=== PATIENT | male | born 1940 | race Caucasian/White ===

== ENCOUNTER 2016-06-14 14:35 | Emergency (ER) | payer OTHER ==
[~2016-06-14] VITALS: Ht 182.9 cm; Wt 97.7 kg
[~2016-06-14 14:35] MED LIST: ACET1TAB84 PO; ASPI81TA28 PO; CMD/25 PO; FINA5TAB PO; FLM4 PO; FRRG PO; LPT/40 PO; METF-384 PO; METO50TA16 PO; SOTA80TA20 PO; TRAM-10 PO; WARF5TAB90 PO
[2016-06-14 14:50] VITALS: TEMP 36.8; Ht 182.9 cm; Wt 97.7 kg
[2016-06-14] MEDS ORDERED: OXYMETAZOLINE HCL 0.05% NA SPR 15 ML BTL ONE ×2 (15:00→15:06)
[2016-06-14] MEDS ORDERED: METF500T5 PO (15:38)
[2016-06-14 15:54] LABS: BUN/CREATININE RATIO 17.6 (10-20); CALCIUM 8.4 mg/dl (8.5-10.1); CREATININE 0.77 mg/dl (0.60-1.40); POTASSIUM 4.1 mmol/L (3.5-5.1)
[2016-06-14 15:55] LABS: INR 2.9 (0.9-1.1); PROTHROMBIN TIME (PATIENT) 32.9 SECONDS (9.0-12.0)
[2016-06-14 15:56] LABS: BASO % 0.3 %; BASO ABS # 0.02 K/uL (0-0.2); COMPLETE YES; EOS % 4.3 %; IG% 0.2 %; LYMPH % 17.8 %; LYMPH ABS # 1.07 K/uL (1.2-3.4); MEAN CELL VOLUME 91.3 fL (80-100); MEAN CORPUSCULAR HEMOGLOBIN 30.7 pg (25-34); MEAN CORPUSCULAR HGB CONC 33.6 g/dl (32-36); MEAN PLATELET VOLUME 10.1 fL (7.4-10.4); NEUT % 67.4 %; PLATELET COUNT 272 K/uL (130-400); RED BLOOD COUNT 4.27 M/uL (4.7-6.1)
[2016-06-14 16:52] VITALS: BP 177/104; PULSE 64; O2SAT 97
--- NOTE | 2016-06-14 18:08 | EMERGENCY ROOM VISIT NOTE ---
History Report prepared by Pawan: Ursula Willson Under the Supervision of: Dr. Marcelino Odell M.D. First contact with patient: 14:50 Chief Complaint: NOSE BLEED (MINOR) Stated Complaint: NOSEBLEED History of Present Illness The patient is a 76 year old male who presents to the Emergency Room with complaints of a recurrent right sided nosebleed that began this morning around 0900. He notes that he was able to control the bleed for about 3 hours; however , it started again when he got out of his recliner to use the bathroom. Currently, it is still bleeding but he reports that it has slowed down. He also complains of a mild headache that began about 30 minutes ago. The patient denies any rectal bleeding. He is on Coumadin for a history of a-fib. He states that he is not always in atrial fibrillation. Source of History: patient Onset: 0900 Position: nose (right nostril) Timing: other (recurrent) Associated Symptoms: + headache Review of Systems See HPI for pertinent positives & negatives. A total of 10 systems reviewed and were otherwise negative. Past Medical & Surgical Medical Problems: (1) Atrial fibrillation and flutter (2) Diabetes mellitus (3) Hyperlipidemia (4) Left Hip DJD (5) Supraventricular tachycardia Family History Diabetes mellitus Heart disease Social History Smoking Status: Former Smoker Drug Use: none Marital Status: Housing Status: lives with family Current/Historical Medications Scheduled Aspirin (Aspirin Ec), 81 MG PO HS Atorvastatin (Lipitor), 40 MG PO HS Finasteride (Proscar), 5 MG PO HS Metformin Hcl Er (Glucophage Er), 500 MG PO QPM Metoprolol Tartrate (Lopressor) (Lopressor), 50 MG PO BID Sotalol Hcl (Betapace), 80 MG PO BID Tamsulosin HCl (Tamsulosin HCl), 0.4 MG PO HS Warfarin Sod (Coumadin), 2.5 MG PO MON&FRI Warfarin Sodium (Coumadin), 5 MG PO T,W,R,SA,SUN Scheduled PRN Acetaminophen (Tylenol Arthritis Ext Rel), 2 TAB PO Q8H PRN for Pain Allergies Coded Allergies: No Known Allergies (Verified , 06/14/16) Physical Exam Vital Signs Date Time Temp Pulse Resp B/P Pulse Ox O2 Delivery O2 Flow Rate FiO2 06/14/16 16:52 64 19 177/104 97 Room Air 06/14/16 14:50 36.8 64 18 171/89 96 Room Air Physical Exam Constitutional: Vital signs reviewed. Eyes: Pupils are equal round reactive to light. Conjunctiva are noninjected. ENT: Pharynx is clear without erythema or exudate. Mucous membranes are moist. Neck supple without meningeal signs. Bleeding from the right naris. Respiratory: Clear to auscultation bilaterally. Breath sounds are equal bilaterally. Cardiovascular: Regular rate and rhythm. No rubs or gallops. GI: Soft, nondistended and nontender. Bowel sounds are present. Musculoskeletal: No peripheral edema. No lower extremity tenderness. Integumentary: No cyanosis. Neurological: The patient is awake and alert. No focal deficits. Psychiatric: Normal affect. Medical Decision & Procedures Laboratory Results 06/14/16 15:25 Red Blood Count 4.27, Mean Corpuscular Volume 91.3, Mean Corpuscular Hemoglobin 30.7, Mean Corpuscular Hemoglobin Concent 33.6, Mean Platelet Volume 10.1, Neutrophils (%) (Auto) 67.4, Lymphocytes (%) (Auto) 17.8, Monocytes (%) (Auto) 10.0, Eosinophils (%) (Auto) 4.3, Basophils (%) (Auto) 0.3, Neutrophils # (Auto ) 4.04, Lymphocytes # (Auto) 1.07, Monocytes # (Auto) 0.60, Eosinophils # (Auto ) 0.26, Basophils # (Auto) 0.02 06/14/16 15:25 Test 06/14/16 15:25 White Blood Count 6.00 K/uL (4.8-10.8) Red Blood Count 4.27 M/uL (4.7-6.1) Hemoglobin 13.1 g/dL (14.0-18.0) Hematocrit 39.0 % (42-52) Mean Corpuscular Volume 91.3 fL (80-100) Mean Corpuscular Hemoglobin 30.7 pg (25-34) Mean Corpuscular Hemoglobin Concent 33.6 g/dl (32-36) Platelet Count 272 K/uL (130-400) Mean Platelet Volume 10.1 fL (7.4-10.4) Neutrophils (%) (Auto) 67.4 % Lymphocytes (%) (Auto) 17.8 % Monocytes (%) (Auto) 10.0 % Eosinophils (%) (Auto) 4.3 % Basophils (%) (Auto) 0.3 % Neutrophils # (Auto) 4.04 K/uL (1.4-6.5) Lymphocytes # (Auto) 1.07 K/uL (1.2-3.4) Monocytes # (Auto) 0.60 K/uL (0.11-0.59) Eosinophils # (Auto) 0.26 K/uL (0-0.5) Basophils # (Auto) 0.02 K/uL (0-0.2) RDW Standard Deviation 45.9 fL (36.4-46.3) RDW Coefficient of Variation 13.8 % (11.5-14.5) Immature Granulocyte % (Auto) 0.2 % Immature Granulocyte # (Auto) 0.01 K/uL (0.00-0.02) Prothrombin Time 32.9 SECONDS (9.0-12.0) Prothromb Time International Ratio 2.9 (0.9-1.1) Anion Gap 5.0 mmol/L (3-11) Est Creatinine Clear Calc Drug Dose 95.8 ml/min Estimated GFR () 100.7 Estimated GFR (Non- 86.9 BUN/Creatinine Ratio 17.6 (10-20) Calcium Level 8.4 mg/dl (8.5-10.1) Laboratory results as reviewed by me. Medications Administered Medications (Trade) Dose Ordered Sig/Herminio Route Start Time Stop Time Status Last Admin Dose Admin Oxymetazoline HCl (Afrin 0.05% Nasal [place]) 1 sprays NOW ONCE NA 06/14/16 15:00 06/14/16 15:02 DC 06/14/16 15:00 1 SPRAYS Procedure Anterior Nasal Packing Indication: Right nasal bleeding on Coumadin Verbal consent obtained. Risks and benefits were explained with the usual customary discussion. A time out was taken. Clots were removed with suction. The right naris was prepped with Afrin. A 5.5-cm nasal balloon was placed in a standard fashion. The patient tolerated this well. Hemostasis was achieved. No complications. ED Course 1456: The patient was evaluated in room C3. A complete history and physical exam was performed. 1500: Ordered Oxymetazoline HCl 1 sprays NA. 1501: I performed an anterior nasal packing procedure - see procedure note above for details. 1543: I reassessed the patient. He was not having any bleeding at this time. 1629: I reassessed the patient. He had no discomfort to his nose and was not bleeding. I deflated the balloon slightly and will check on him in 10 minutes to see if he begins to bleed. I told him to return Saturday evening to have it removed. He agreed with the plan. 1632: The patient's bleeding began again. I reinflated the packing. He is not having any significant pain. The bleeding stopped. 1700: I reassessed the patient. He was not bleeding. He was comfortable and wants to go home. Medical Decision This is a 76-year-old male who presents with a nosebleed. I did perform a limited focused review of portions of the patient's old chart on the electronic medical record. The patient has had no recent pertinent visits to this hospital. I did evaluate the patient as noted above. IV access was established. I did order and review the patient's blood work as noted in the electronic medical record. His INR is therapeutic at 2.9. I did spray the patient's nostril with Afrin after he blew his nose. I did pack his nose with a 5.5 rapid Rhino. I did achieve hemostasis. He was observed here and had no recurrent bleeding. I did attempt to readjust the pressure in the rapid Rhino and unfortunately started bleeding again. I therefore reinflated it and hemostasis was achieved. He was taken home by his but while in the car he developed some bleeding. He returned to the room and I readjusted the rapid Rhino by deflating it and then pushing even further. I did observe him for some time here and he had no recurrent bleeding. He was therefore discharged home and will return in 3 days for removal of the packing. Impression Primary Impression: Epistaxis Additional Impression: Anticoagulated on Coumadin Scribe Attestation The scribe's documentation has been prepared under my direct and personally reviewed by me in its entirety. I confirm that the note above accurately reflects all work, treatment, procedures, and medical decision making performed by me. Departure Information Dispostion Home / Self-Care Referrals Hamzah Gonzales M.D. Forms HOME CARE DOCUMENTATION FORM, IMPORTANT VISIT INFORMATION, WORK / SCHOOL INSTRUCTIONS Patient Instructions ED Nasal Packing Anterior Removable, My [facility] Additional Instructions You have been examined and treated today on an emergency basis only. This is not a substitute for, or an effort to provide, complete comprehensive medical care. It is impossible to recognize and treat all injuries or illnesses in a single emergency department visit. It is therefore important that you follow up closely with your physician. Call as soon as possible for an appointment. Return for worsening symptoms or if you develop fever, vomiting, nasal pain or any other concerning symptoms. Your packing needs to be removed in 2-3 days. Return here Saturday night or Saturday at the latest for removal your packing or go to an urgent care center or your doctor if you prefer. Problem Qualifiers
== END 2016-06-14 17:25 | disposition home or self-care (01) ==
LOC: EDBD 14:35 → C.EDC 14:40
DX: R04.0 Epistaxis (principal); Z79.01 Long term (current) use of anticoagulants; I48.91 Unspecified atrial fibrillation; E11.9 Type 2 diabetes mellitus without complications; E78.5 Hyperlipidemia, unspecified; M16.12 Unilateral primary osteoarthritis, left hip; I47.1 Supraventricular tachycardia; Z79.82 Long term (current) use of aspirin; Z87.891 Personal history of nicotine dependence; Z83.3 Family history of diabetes mellitus

== ENCOUNTER 2016-06-17 10:31 | Emergency (ER) | payer OTHER ==
[~2016-06-17] VITALS: Ht 182.9 cm; Wt 101.8 kg
[~2016-06-17 10:31] MED LIST changes: -FRRG PO; -METF-384 PO; +METF500T5 PO; -TRAM-10 PO
[2016-06-17 10:39] VITALS: Ht 182.9 cm; Wt 101.8 kg
[2016-06-17] MEDS ORDERED: XYLOCAINE 1%/SOD BICARB 20 ML VIAL INFIL ONE (11:15)
[2016-06-17 12:08] VITALS: BP 109/68; PULSE 64; TEMP 36.6; O2SAT 95
--- NOTE | 2016-06-17 17:47 | EMERGENCY ROOM VISIT NOTE ---
ED Visit Note First contact with patient: 10:46 CHIEF COMPLAINT: Nasal packing removal. HISTORY OF PRESENT ILLNESS: Mr. Rodriguez is a 76-year-old white male who ambulates into the ED accompanied by his requesting nasal packing removal. Patient reports 3 days ago he started to have a nosebleed that he could not control at home. He came in the emergency department and a Rhino Rocket was placed in the left nostril. Since that time he reports she's had some mild blood-tinged fluid around the packing but has had no active bleeding. Additionally he reports he has been feeling fine and has had some mild pressure in his sinuses but no specific pain and he denies any fevers or chills. PHYSICAL EXAM: Vital Signs: Date Time Temp Pulse Resp B/P Pulse Ox O2 Delivery O2 Flow Rate FiO2 06/17/16 12:08 36.6 64 18 109/68 95 06/17/16 10:39 36.6 64 18 109/68 95 Room Air General: 76 year-old white male in no acute distress, nontoxic-appearing, afebrile and hemodynamically stable. Neurological: Awake, alert and oriented 3. Answering questions appropriately and following commands. No focal motor sensory deficits. Face: No gross bony deformities. Nasal packing noted in the left nostril. No active bleeding prior to removal. After removal he continued to have no active bleeding. I did encourage him to blow his nose at least 4 times vigorously and had no return of bleeding. A visual inspection showed some bloody mucus in the nose but no active bleeding. No perforations or abscess were noted over the septum. Palpation of the nose revealed no swelling or tenderness. ED COURSE: Patient is assessed as noted above. The packing was easily removed on the first attempt. Patient was educated about tonight's findings and instructed on his treatment plan; he verbalizes understanding and agreement with this plan. DISPOSITION: Patient discharged home in stable condition accompanied by his . CLINICAL IMPRESSION: Nasal packing removal. PLAN: Patient was encouraged to continue his current medications. Patient was instructed how to attempt to stop an episode of epistaxis at home with a nasal clamp and/or Afrin spray. Patient was encouraged to use [id number] nasal saline spray to keep his mucous membranes moist and possible use a humidifier in his home. Patient was encouraged to follow-up with his PCP for recheck and possible referral to ENT specialist. Patient was encouraged return the ED for uncontrolled recurrent bleeding, fevers , uncontrolled pain or any new/concerning symptoms.
== END 2016-06-17 11:30 | disposition home or self-care (01) ==
LOC: C.EDB 10:33 → C.EDD 11:30
DX: Z48.00 Encounter for change or removal of nonsurgical wound dressing (principal); R04.0 Epistaxis

== ENCOUNTER 2017-01-25 11:30 | Emergency (ER) | payer OTHER ==
[~2017-01-25] VITALS: Ht 180.3 cm; Wt 102.9 kg
[2017-01-25 12:58] VITALS: Ht 180.3 cm; Wt 102.9 kg
--- NOTE | 2017-01-25 13:39 | DIAGNOSTIC IMAGING REPORT ---
CHEST ONE VIEW PORTABLE CLINICAL HISTORY: EVALUATE RESPIRATORY DISTRESS.DYSPNEA dyspnea COMPARISON STUDY: 01/12/2016 FINDINGS: Atelectasis versus minimal infiltrate left base. Diaphragms are smooth. Lungs otherwise are clear. Mild stable cardiomegaly. IMPRESSION: Minimal infiltrate versus atelectasis left base. Mild stable cardiomegaly. The above report was generated using voice recognition software. It may contain grammatical, syntax or spelling errors. Electronically signed by: Bradford Garcia M.D. 01/25/2017 1:38 PM Dictated Date/Time: 01/25/2017 1:37 PM
[2017-01-25 14:49] LABS: BASO % 0.4 %; BASO ABS # 0.03 K/uL (0-0.2); COMPLETE YES; EOS % 4.3 %; HEMATOCRIT 43.3 % (42-52); IG% 0.4 %; LYMPH % 21.4 %; LYMPH ABS # 1.59 K/uL (1.2-3.4); MEAN CELL VOLUME 96.7 fL (80-100); MEAN CORPUSCULAR HEMOGLOBIN 32.4 pg (25-34); MEAN CORPUSCULAR HGB CONC 33.5 g/dl (32-36); MEAN PLATELET VOLUME 10.5 fL (7.4-10.4); MONO % 8.7 %; NEUT % 64.8 %; PLATELET COUNT 329 K/uL (130-400); RED BLOOD COUNT 4.48 M/uL (4.7-6.1); WHITE BLOOD COUNT 7.44 K/uL (4.8-10.8)
[2017-01-25 14:56] LABS: INR 2.9 (0.9-1.1); PARTIAL THROMBOPLASTIN RATIO 1.4; PROTHROMBIN TIME (PATIENT) 32.7 SECONDS (9.0-12.0)
[2017-01-25 14:57] LABS: ALT/SGPT 26 U/L (12-78); BLOOD UREA NITROGEN 15 mg/dl (7-18); BUN/CREATININE RATIO 14.4 (10-20); CALCIUM 8.9 mg/dl (8.5-10.1); CARBON DIOXIDE 26 mmol/L (21-32); CHLORIDE 103 mmol/L (98-107); CREATININE 1.03 mg/dl (0.60-1.40); GLUCOSE 228 mg/dl (70-99); MAGNESIUM 2.1 mg/dl (1.8-2.4); POTASSIUM 3.7 mmol/L (3.5-5.1); SODIUM 137 mmol/L (136-145)
[2017-01-25 15:08] LABS: ALKALINE PHOSPHATASE 44 U/L (45-117); AST/SGOT 20 U/L (15-37); PHOSPHORUS 2.8 mg/dl (2.5-4.9)
[2017-01-25 15:21] LABS: MANUAL MICROSCOPIC REQUIRED? YES; REVIEW REQ? NO; URINE APPEARANCE CLEAR (CLEAR); URINE BILIRUBIN NEG (NEG); URINE COLOR YELLOW; URINE NITRITE NEG (NEG); URINE PH 5.5 (4.5-7.5); URINE SPECIFIC GRAVITY 1.025 (1.000-1.030); UROBILINOGEN NEG (NEG)
[2017-01-25 15:52] LABS: URINE BACTERIA 1+ (NEG); URINE MUCUS PRESENT (NONE PRSENT); URINE RBC 0-4 /hpf (0-4)
--- NOTE | 2017-01-25 16:00 | EMERGENCY ROOM VISIT NOTE ---
History Report prepared by Pawan: Renny De La Rosa Under the Supervision of: Dr. Pelon Ramos M.D. First contact with patient: 12:29 Chief Complaint: TACHYCARDIA Stated Complaint: HEART RYTHM,PULSE RATE History of Present Illness The patient is a 76 year old white male with a past medical history of a-fib, DM , enlarged prostate, hyperlipidemia who presents to the ED with a cc of intermittent heart palpitations beginning three days ago. Feels that his heart rate was increased, and rhythm was irregular. Symptoms resolved two days ago, and returned yesterday. History of similar symptoms, but has not happened in over a year. Nothing worsens his symptoms. Negative lightheadedness. On Sotalol and Metoprolol, and took extra dose of each which resolved his symptoms. Patient on Coumadin, last INR was 2.5. Denies recent changes to his medications. Had an unsuccessful cardiac ablation recently. Had left hip replacement one year ago, notes that he has been taking a lot of Tylenol chronically. Drinks alcohol rarely. Occasional caffeine use. No increased stresses. Source of History: patient Onset: Three days ago Quality: other (heart palpitations) Timing: intermittent Modifying Factors (Worsening): other (none) Note: The patient denies lightheadedness. Review of Systems See HPI for pertinent positives and negatives. A total of ten systems were reviewed and were otherwise negative. Past Medical & Surgical Medical Problems: (1) Atrial fibrillation and flutter (2) Diabetes mellitus (3) Enlarged prostate (4) Hyperlipidemia (5) Left Hip DJD (6) Supraventricular tachycardia Family History Diabetes mellitus Heart disease Social History Smoking Status: Former Smoker Drug Use: none Marital Status: Housing Status: lives with family Current/Historical Medications Scheduled Aspirin (Aspirin Ec), 81 MG PO HS Atorvastatin (Lipitor), 40 MG PO HS Finasteride (Proscar), 5 MG PO HS Metformin Hcl Er (Glucophage Er), 500 MG PO QPM Metoprolol Tartrate (Lopressor) (Lopressor), 50 MG PO BID Sotalol Hcl (Betapace), 80 MG PO BID Tamsulosin HCl (Tamsulosin HCl), 0.4 MG PO HS Warfarin Sod (Coumadin), 2.5 MG PO 2XWK Warfarin Sodium (Coumadin), 5 MG PO 5XWK Scheduled PRN Acetaminophen (Tylenol Arthritis Ext Rel), 2 TAB PO Q8H PRN for Pain Allergies Coded Allergies: No Known Allergies (Verified , 01/25/17) Physical Exam Vital Signs Date Time Temp Pulse Resp B/P (MAP) Pulse Ox O2 Delivery O2 Flow Rate FiO2 01/25/17 16:26 62 20 142/68 94 01/25/17 14:25 55 21 01/25/17 14:20 62 20 01/25/17 14:15 56 20 01/25/17 14:10 57 20 01/25/17 14:05 59 20 01/25/17 14:00 57 21 01/25/17 13:55 58 15 01/25/17 13:50 58 19 01/25/17 13:45 60 20 01/25/17 13:40 58 20 01/25/17 13:35 58 17 01/25/17 13:30 57 22 01/25/17 13:25 61 21 01/25/17 13:20 59 18 01/25/17 13:15 56 14 01/25/17 13:10 68 17 01/25/17 13:05 61 23 01/25/17 13:00 60 24 01/25/17 12:55 61 21 95 01/25/17 12:50 60 20 94 01/25/17 12:45 60 21 95 01/25/17 12:40 61 17 96 01/25/17 12:38 61 16 140/73 96 Room Air 01/25/17 12:38 140/73 01/25/17 12:37 Room Air 01/25/17 12:35 61 26 95 01/25/17 12:30 61 21 95 01/25/17 12:25 61 18 94 01/25/17 12:20 61 17 96 01/25/17 12:15 60 24 95 01/25/17 12:10 62 16 95 01/25/17 12:02 61 01/25/17 11:36 66 18 127/75 95 Room Air Physical Exam GENERAL: Awake, alert, well-appearing, NAD HENT: Normocephalic, atraumatic. EYES: Normal conjunctiva. Sclera non-icteric. NECK: Supple. No nuchal rigidity. FROM. RESPIRATORY: CTAB, no rhonchi, wheezing, crackles CARDIAC: RRR, no MRG ABDOMEN: Soft, NTND, BS+ MSK: No chest wall TTP, no LE edema NEURO: GCS 15, CN 2-12 intact, moves all 4s on command SKIN: No rash or jaundice noted. Medical Decision & Procedures ER Provider Diagnostic Interpretation: X-ray: Per my interpretation, radiologist review. CHEST ONE VIEW PORTABLE FINDINGS: Atelectasis versus minimal infiltrate left base. Diaphragms are smooth. Lungs otherwise are clear. Mild stable cardiomegaly. IMPRESSION: Minimal infiltrate versus atelectasis left base. Mild stable cardiomegaly. The above report was generated using voice recognition software. It may contain grammatical, syntax or spelling errors. Electronically signed by: Bradford Garcia M.D. 01/25/2017 1:38 PM Laboratory Results 01/25/17 11:50 Red Blood Count 4.48, Mean Corpuscular Volume 96.7, Mean Corpuscular Hemoglobin 32.4, Mean Corpuscular Hemoglobin Concent 33.5, Mean Platelet Volume 10.5, Neutrophils (%) (Auto) 64.8, Lymphocytes (%) (Auto) 21.4, Monocytes (%) (Auto) 8.7, Eosinophils (%) (Auto) 4.3, Basophils (%) (Auto) 0.4, Neutrophils # (Auto) 4.82, Lymphocytes # (Auto) 1.59, Monocytes # (Auto) 0.65, Eosinophils # (Auto) 0.32, Basophils # (Auto) 0.03 01/25/17 11:50 Test 01/25/17 11:50 01/25/17 14:34 White Blood Count 7.44 K/uL (4.8-10.8) Red Blood Count 4.48 M/uL (4.7-6.1) Hemoglobin 14.5 g/dL (14.0-18.0) Hematocrit 43.3 % (42-52) Mean Corpuscular Volume 96.7 fL (80-100) Mean Corpuscular Hemoglobin 32.4 pg (25-34) Mean Corpuscular Hemoglobin Concent 33.5 g/dl (32-36) Platelet Count 329 K/uL (130-400) Mean Platelet Volume 10.5 fL (7.4-10.4) Neutrophils (%) (Auto) 64.8 % Lymphocytes (%) (Auto) 21.4 % Monocytes (%) (Auto) 8.7 % Eosinophils (%) (Auto) 4.3 % Basophils (%) (Auto) 0.4 % Neutrophils # (Auto) 4.82 K/uL (1.4-6.5) Lymphocytes # (Auto) 1.59 K/uL (1.2-3.4) Monocytes # (Auto) 0.65 K/uL (0.11-0.59) Eosinophils # (Auto) 0.32 K/uL (0-0.5) Basophils # (Auto) 0.03 K/uL (0-0.2) RDW Standard Deviation 46.2 fL (36.4-46.3) RDW Coefficient of Variation 13.2 % (11.5-14.5) Immature Granulocyte % (Auto) 0.4 % Immature Granulocyte # (Auto) 0.03 K/uL (0.00-0.02) Prothrombin Time 32.7 SECONDS (9.0-12.0) Prothromb Time International Ratio 2.9 (0.9-1.1) Activated Partial Thromboplast Time 36.8 SECONDS (21.0-31.0) Partial Thromboplastin Ratio 1.4 Anion Gap 8.0 mmol/L (3-11) Est Creatinine Clear Calc Drug Dose 72.2 ml/min Estimated GFR () 80.3 Estimated GFR (Non- 69.3 BUN/Creatinine Ratio 14.4 (10-20) Calcium Level 8.9 mg/dl (8.5-10.1) Phosphorus Level 2.8 mg/dl (2.5-4.9) Magnesium Level 2.1 mg/dl (1.8-2.4) Total Bilirubin 0.7 mg/dl (0.2-1) Aspartate Amino Transf (AST/SGOT) 20 U/L (15-37) Alanine Aminotransferase (ALT/SGPT) 26 U/L (12-78) Alkaline Phosphatase 44 U/L (45-117) Troponin I < 0.015 ng/ml (0-0.045) Pro-B-Type Natriuretic Peptide 1535 pg/ml (0-1800) Total Protein 8.2 gm/dl (6.4-8.2) Albumin 4.0 gm/dl (3.4-5.0) Globulin 4.2 gm/dl (2.5-4.0) Albumin/Globulin Ratio 1.0 (0.9-2) Thyroid Stimulating Hormone (TSH) 2.440 uIu/ml (0.300-4.500) Urine Color YELLOW Urine Appearance CLEAR (CLEAR) Urine pH 5.5 (4.5-7.5) Urine Specific [place] 1.025 (1.000-1.030) Urine Protein NEG (NEG) Urine Glucose (UA) 1+ (NEG) Urine Ketones NEG (NEG) Urine Occult Blood TRACE (NEG) Urine Nitrite NEG (NEG) Urine Bilirubin NEG (NEG) Urine Urobilinogen NEG (NEG) Urine Leukocyte Esterase NEG (NEG) Urine RBC 0-4 /hpf (0-4) Urine WBC 5-10 /hpf (0-5) Urine Epithelial Cells >30 /lpf (0-5) Urine Bacteria 1+ (NEG) Urine Mucus PRESENT (NONE PRSENT) Laboratory results reviewed by me ECG Indication: palpitations Rate (beats per minute): 61 Rhythm: normal sinus Findings: Q waves (leads 3 and AVF), other (Normal intervals. Normal axis. No other STS changes or TWI. ) Comparison ECG Date: June 05, 2012 Change: no significant change ED Course 1231: The patient was evaluated in room B4B. A complete history and physical exam was performed. 1555: I reevaluated the patient. Discussed results and discharge instructions: he verbalized understanding and agreement. The patient is ready for discharge. Medical Decision The patient is a 76 year old white male with a past medical history of SVT, DM, hyperlipidemia who presents to the ED with a cc of intermittent heart palpitations beginning three days ago. Differential diagnosis include etiologies such as premature contractions, electrolyte abnormality, cardiac dysrhythmia, thyroid dysfunction, pulmonary embolism, infection, gastrointestinal, as well as others were entertained. Patient was seen and evaluated the bedside. Patient is a prior history of a rapid heart rate and has been placed on both metoprolol and sotalol for rate control. Patient also has a history of failed ablation. Patient states that over the last several days he's had several episodes of intermittent tachycardia at which point he is take an extra dose of his medications. Patient states that his tachycardia is resolved. Patient denies any alcohol, or tobacco is recent. Patient denies any stimulants or supplements. Patient's exam is fairly unremarkable. Patient does not have an elevated heart rate at this time. Patient has no history of syncope or presyncope. Patient is no lower shotty swelling or edema. Patient is no other recent changes in medications with the exception of his on trial at home. Patient's EKG is unchanged. Patient's chest x-ray shows questionable atelectasis versus infection. Patient denies any infectious symptoms and does not have an elevated white count this is more likely atelectasis. Patient has fairly unremarkable blood work. I did discuss the patient with the on-call relay record clerk who recommended outpatient follow-up as the patient would likely need an EP study which would not be able to be done in house at this time given the holiday weekend. I did discuss this with the patient was agreeable to this plan of care. Patient was told that he may check his pulse and temperature 60 take an extra dose of Toprol but given the concern of side effects with the sotalol he should not take extra dose of that. Patient was also told that if he has worsening symptoms he may return for further examination and treatment. Patient is suitable for outpatient follow-up and treatment. All cautions were answered. Patient was given strict follow-up, discharge, and return precautions. All questions were answered. Patient was deemed suitable for outpatient follow-up at this time. Patient agreed with the plan of care and was safely discharged home. Medication Reconcilliation Current Medication List: was personally reviewed by me Blood Pressure Screening Patient's blood pressure: Normal blood pressure Blood pressure disposition: Did not require urgent referral Consults Time Called: 1530 Consulting Physician: Dr. Lopez -Cardiology Returned Call: [phone] Discussed the patient's case. Dr. Lopez feels that the patient would likely be safe for discharge with outpatient follow-up unless he has changes to his Sotalol levels. Impression Primary Impression: Tachycardia Scribe Attestation The scribe's documentation has been prepared under my direction and personally reviewed by me in its entirety. I confirm that the note above accurately reflects all work, treatment, procedures, and medical decision making performed by me. Departure Information Dispostion Home / Self-Care Referrals Hamzah Gonzales M.D. (PCP) Dandy Lopez, Bradford Christianson PA-C Patient Instructions My [facility], Tachycardia Additional Instructions Please return to the emergency department if you have worsening or recurrent symptoms not amenable to at-home treatment. Please call for a follow-up appointment with her primary care physician. Please take your medications as prescribed. If you have other concerns and/or complaints please feel free to also call your primary care physician's office or return the ED for further evaluation, management, and treatment. Take your medications as prescribed. You have been examined and treated today on an emergency basis only. This is not a substitute for, or an effort to provide, complete comprehensive medical care. It is impossible to recognize and treat all injuries or illnesses in a single emergency department visit. It is therefore important that you follow up closely with [facility], your PCP, and/or your specialist(s). Call as soon as possible for an appointment. Thank you for your time and consideration. I look forward to speaking with you again soon. Please don't hesitate to call us if you have any questions.
[2017-01-25 16:26] VITALS: BP 142/68; PULSE 62; O2SAT 94
== END 2017-01-25 16:28 | disposition home or self-care (01) ==
LOC: C.EDB 11:31
DX: R00.0 Tachycardia, unspecified (principal); I48.91 Unspecified atrial fibrillation; E11.9 Type 2 diabetes mellitus without complications; E78.5 Hyperlipidemia, unspecified; N40.0 Benign prostatic hyperplasia without lower urinary tract symptoms; Z79.01 Long term (current) use of anticoagulants; Z79.84 Long term (current) use of oral hypoglycemic drugs; Z79.82 Long term (current) use of aspirin; Z87.891 Personal history of nicotine dependence; Z82.49 Family history of ischemic heart disease and other diseases of the circulatory system; Z83.3 Family history of diabetes mellitus

== ENCOUNTER 2018-11-21 05:00 | Inpatient (IN) ==
--- NOTE | 2018-10-21 17:08 | PAT Medication Instructions ---
Medication Instructions Date of Service October 22, 2018 Home Medications acetaminophen [Tylenol 8 Hour] 650 mg PO Q8H NEEDED aspirin 81 mg PO HS atorvastatin 40 mg PO HS cyanocobalamin (vitamin B-12) 1,000 mcg PO DAILY finasteride 5 mg PO HS metformin 500 mg PO HS metoprolol tartrate 50 mg PO BID sotalol 120 mg PO BID Coumadin 2.5 mg PO 5XWK ciprofloxacin HCl [Cipro] 2,000 mg PO NEEDED warfarin [Coumadin] 5 mg PO 2XWK Continue as directed ciprofloxacin HCl [Cipro] 2,000 mg PO NEEDED ASK your prescriber and surgeon Coumadin 2.5 mg PO 5XWK warfarin [Coumadin] 5 mg PO 2XWK aspirin 81 mg PO HS DO NOT take the morning of surgery cyanocobalamin (vitamin B-12) 1,000 mcg PO DAILY Take morning of surgery With a small sip of water, OTHERWISE NOTHING TO EAT OR DRINK AFTER MIDNIGHT: metoprolol tartrate 50 mg PO BID sotalol 120 mg PO BID acetaminophen [Tylenol 8 Hour] 650 mg PO Q8H NEEDED (if needed; stop 4 hours before surgery) Take evening before surgery finasteride 5 mg PO HS metformin 500 mg PO HS metoprolol tartrate 50 mg PO BID sotalol 120 mg PO BID atorvastatin 40 mg PO HS acetaminophen [Tylenol 8 Hour] 650 mg PO Q8H NEEDED (if needed) Other Notes If you have any questions please call us at [phone] or [phone] or [phone] or [phone]
--- NOTE | 2018-10-22 10:10 | Anesthesiology Consultation ---
Date of Service October 22, 2018 Assessment & Plan (1) Encounter for pre-operative examination: - No available anesthesia records re: intubation. Chart Review Chart Review: Acceptable Risk for Surgery and Patient seen in Pre Admission Testing Consults Requested none Teaching & Discussion Pre-Anesthesia Teaching/Discussion Notes: Instructed NPO after midnight before surgery, except medications with 15 cc of water. Medication instructions provided according to the PAT guidelines. History Surgery Operation Date: 11/21/18 12:30 Proposed Procedures p Right Total Hip Arthroplasty - Ariel Boyce MD Height/Weight Height: 5 ft 11.5 in Weight: 99.3 kg Allergies Allergy/AdvReac Type Severity Reaction Status Date / Time No Known Allergies Allergy Verified 10/17/18 15:24 Medications Home Medications Medication Instructions Recorded Confirmed Last Taken acetaminophen [Tylenol 8 Hour] 650 mg PO Q8H PRN 02/27/18 10/17/18 03/04/18 21:00 aspirin 81 mg PO HS 02/27/18 10/17/18 10/16/18 atorvastatin 40 mg PO HS 02/27/18 10/17/18 10/16/18 cyanocobalamin (vitamin B-12) 1,000 mcg PO DAILY 02/27/18 10/17/18 03/03/18 23:55 finasteride 5 mg PO HS 02/27/18 10/17/18 10/16/18 metformin 500 mg PO HS 02/27/18 10/17/18 10/16/18 metoprolol tartrate 50 mg PO BID 02/27/18 10/17/18 10/17/18 sotalol 120 mg PO BID 02/27/18 10/17/18 10/17/18 Coumadin 2.5 mg PO 5XWK 10/17/18 10/17/18 Unknown ciprofloxacin HCl [Cipro] 2,000 mg PO UD PRN 10/17/18 10/17/18 Unknown warfarin [Coumadin] 5 mg PO 2XWK 10/17/18 10/17/18 Unknown Past Medical History Medical History Aortic stenosis "MILD" (DON 1.5cm2, mead gradient 12.3mmhg per 09/2016 ECHO) Deep vein thrombosis 2+ YEARS AGO PER CHART REVIEW- ON WARFARIN Diabetes mellitus, type 2 NIDDM History of BPH History of atrial fibrillation A. FIB/A.FLUTTER HISTORY S/P CARDIAC ABLATION; ON WARFARIN/ASA/BETA GONZALO History of jaundice as a child Hyperlipidemia Hypertension Obesity Osteoarthritis PSVT (paroxysmal supraventricular tachycardia) Paroxysmal atrial fibrillation Exercise / Class Metabolic Activity III < 4 Walking/Shop/Light housework (Moves around slowly constantly. Does need to sit more frequently due to hip pain. Can climb stairs slowly. Denies CP or SOB. ) Past Surgical History Surgical History History of cardiac radiofrequency ablation 2/2 A.FIB/A.FLUTTER History of cataract surgery B/L History of colonoscopy History of esophagogastroduodenoscopy (EGD) History of nasal cauterization 2/ EPITAXIS History of total hip arthroplasty LEFT History of transurethral resection of prostate Past Anesthesia History No Hx of Anesthesia Complications and No Family Hx of Anesthesia Complications History of PONV No Hx of PONV and No Hx of Motion Sickness Social History Smoking Status: Former smoker Smoking cigarettes per day: 1 ppd x 6-7 years Do You Dip or Chew Tobacco: No Smoking End Date: 1964 Hx Alcohol Use: Yes Alcohol type: beer and hard liquor alcohol intake frequency: a few times a week Hx Substance Use: No substance use type: does not use Review of Systems Patient denies chest pain, shortness of breath, dyspnea on exertion, reflux, cough, wheezing, palpitations. +Joint Pain (Hip) +palpitations (due to SVT/a.fib occasionally) Physical Exam Vital Signs BP: 155/77 P: 56 R: 14 T: 97.5 SPO2: 97% on RA ENMT Thyromental Distance: > or= 3.5 Finger Breadths (3.5) Mallampati Class: II Neck normal visual inspection and + limited neck extension Respiratory normal respiratory effort Auscultation: lungs clear to auscultation bilaterally Cardiovascular Rate/Rhythm: regular rate and regular rhythm Heart Sounds: + murmur (2/6) Vessels: + carotid bruit (L>R) Neurologic moves all extremities Psychiatric Orientation: alert and oriented x 3 Testing Laboratory Results 10/22/18 10:25 10/22/18 10:25 PT 26.9 Seconds (9.0-12.0) H 10/22/18 10:25 INR 2.8 (0.9-1.1) H 10/22/18 10:25 APTT 32.4 Seconds (21.0-31.0) H 10/22/18 10:25 Blood Type A Negative 10/22/18 10:25 Antibody Screen NEGATIVE 10/22/18 10:25 Electrocardiogram Date: 07/02/18 Findings: + SB @ (54) and + no change from (01/15/18) Chest X-Ray Date: 10/22/18 Findings: + NAD and + cardiomegaly (mild) Echocardiogram Date: 09/17/16 LVEF 67%. No RWMA. Mild aortic stenosis (DON 1.5cm2, mead gradient 12.3mmhg). Mild AR/MR/TR/ND. Stress Test Date: 01/20/16 Type: nuclear Resting EF: 78% SPECT imaging reveals normal myocardial thickening and wall motion. Lexiscan nuclear cardiac stress test negative for ischemia. 67%MPHR. Other Testing CAROTID DUPLEX 09/29/15 Impression: Right carotid artery duplex examination indicates evidence of a less than 50% stenosis of the internal carotid artery. Left carotid artery duplex examination indicates evidence of a less than 50% stenosis of the internal carotid artery.
--- NOTE | 2018-10-22 10:44 | XRay Report ---
XR chest Pre-admission PA/Lat CLINICAL HISTORY: Preoperative evaluation. COMPARISON STUDY: Chest radiograph January 25, 2017. FINDINGS: Lung volumes are normal. There is no pneumothorax or pleural effusion. There is no evidence for pneumonia or pulmonary edema. Mild cardiomegaly is unchanged. Mediastinal contours are stable. L inear right midlung opacity reflects atelectasis. IMPRESSION: 1. No acute cardiopulmonary findings. 2. Mild cardiomegaly. Electronically signed by: Terence Shay M.D. 10/22/2018 10:43 AM
[2018-10-22 11:16] LABS: Basophils # (auto) 0.02 K/uL (0-0.2); Basophils % (auto) 0.3 %; Eosinophils % (auto) 4.9 %; Hematocrit (blood only) 36.7 % (42-52); Hemoglobin 12.3 g/dL (14.0-18.0); Lymphocytes # (auto) 1.38 K/uL (1.2-3.4); Lymphocytes % (auto) 22.5 %; Mean Corpuscular Hemoglobin 31.9 pg (25-34); Mean Corpuscular Hgb Conc 33.5 g/dL (32-36); Mean Corpuscular Volume 95.3 fL (80-100); Mean Platelet Volume 10.5 fL (7.4-10.4); Monocytes # (auto) 0.59 K/uL (0.11-0.59); Monocytes % (auto) 9.6 %; Neutrophils # (auto) 3.85 K/uL (1.4-6.5); Neutrophils % (auto) 62.7 %; Platelet Count 264 K/uL (130-400); RDW Coefficient of Variation 13.2 % (11.5-14.5); RDW Standard Deviation 46.1 fL (36.4-46.3); Red Blood Count 3.85 M/uL (4.7-6.1); White Blood Count 6.14 K/uL (4.8-10.8)
[2018-10-22 11:27] LABS: INR 2.8 (0.9-1.1); Partial Thromboplastin Ratio 1.2; Partial Thromboplastin Time 32.4 Seconds (21.0-31.0); Prothrombin Time 26.9 Seconds (9.0-12.0)
[2018-10-22 11:33] LABS: BUN Creatinine Ratio 12.4 (10-20); Blood Urea Nitrogen 10 mg/dl (7-18); C Reactive Protein < 0.29 mg/dl (0-0.29); Calcium 8.3 mg/dl (8.5-10.1); Carbon Dioxide 29 mmol/L (21-32); Chloride 107 mmol/L (98-107); Creatinine Clr Calc Pharmacy 90.3 ml/min; Est GFR (African American) 98.3; Est GFR (Non-African American) 84.8; Glucose 175 mg/dl (70-99); Potassium 3.9 mmol/L (3.5-5.1); Sodium 141 mmol/L (136-145)
--- NOTE | 2018-11-16 14:55 | History and Physical Report ---
DATE OF ADMISSION: 11/21/2018 CHIEF COMPLAINT: Right hip pain. HISTORY OF PRESENT ILLNESS: The patient is an 78-year-old gentleman who is well known to me from previous left hip replacement done about 2-1/2 years ago who presents now for treatment of his right hip. He continues to be bothered by right hip pain. It has been bothering for years. It has gradually gotten worse to the point where it really limiting his activities. He has to walk very slowly and has been recently and uses a cane to get around. His left hip has done well. He has difficulty putting the shoes and socks on. He has nighttime pain. He would like to proceed with right hip replacement. PAST MEDICAL HISTORY: Past medical history of: 1. Hypertension. 2. Elevated cholesterol. 3. Paroxysmal atrial fibrillation on Coumadin, followed by Dr. Lamb. 4. Diabetes x5 years. 5. BPH status post TURP. PAST SURGICAL HISTORY: 1. Left hip replacement done 02/01/2016. 2. TURP done 03/22/2018. ALLERGIES: HAY FEVER. CURRENT MEDICINES: 1. Coumadin 5 mg on Saturday, Saturday and 2.5 mg on the other days. 2. Metformin 500 mg a day. 3. Aspirin 81 mg. 4. Atorvastatin 50 mg. 5. Sotalol. 6. Metoprolol twice a day. 7. Tylenol 3 times. 8. Vitamin B12 supplements. SOCIAL HISTORY: An 78-year-old male. He is . Does not smoke. FAMILY HISTORY: Noncontributory. REVIEW OF SYSTEMS: Significant for paroxysmal atrial fibrillation. He is followed by Dr. Lee. Denies any chest pain or shortness of breath. No history of DVT or PE. Other than being on the Coumadin, no known bleeding problems. PHYSICAL EXAMINATION: GENERAL: Reveals a pleasant elderly male. Looks to be in reasonably good health. HEENT: Benign. NECK: Supple, no lymphadenopathy. LUNGS: Clear to auscultation. HEART: Has a regular rate and rhythm. ABDOMEN: Soft, nontender, nondistended. EXTREMITIES: Grossly neurovascularly intact except as follows: Examination of the right hip reveals the patient walks very slow and hesitant gait. Leg lengths appear pretty equal. He has got a very stiff hip. He has got an external rotation contracture of at least 10 degrees. He has pain with any type of hip motion. Negative straight leg raise. No knee effusion. He is neurologically intact. X-RAYS: X-ray of the right hip reviewed. Shows advanced right hip DJD. He has got complete loss of his superior joint space. He has got flattening of the femoral head. Radiographically looks a little bit short on the right compared to left. ASSESSMENT: An 78-year-old gentleman 2-1/2 years out from a left hip replacement with advanced right hip degenerative joint disease. He has failed conservative treatment and would like to have his right hip replaced. PLAN: We will take him to the operating room and do right total hip replacement. The risks and benefits of this procedure were explained to the patient including but not limited to DVT, PE, , infection, neurological injury, vascular injury, bleeding problem, pain, limited range of motion, stiffness, failure to relieve symptoms, incomplete relief of symptoms, need for further surgery in future, fracture, leg length inequality, nerve palsy, etc. The patient understands and desires to proceed. Informed consent was obtained. We did talk about stopping his Coumadin 5 days preoperatively. We will get a stat PT and INR the morning of surgery. He will hold his metformin in the morning of surgery as well and take his metoprolol and sotalol. We will use insulin sliding scale coverage in the hospital. As far as discharge plans, he is hoping to go to [facility]. He did well there the last time and did well.
[~2018-11-21 05:00] MED LIST changes: -ACET1TAB84 PO; +ACETAMINOPHEN 500 MG TAB PO SCH; -ASPI81TA28 PO; +CEFAZOLIN 2000MG 2,000 MG/15 ML SYR IV SCH; -CMD/25 PO; +FAMOTIDINE 20 MG TAB PO SCH; -FINA5TAB PO; -FLM4 PO; +GABAPENTIN 300 MG CAP PO SCH; -LPT/40 PO; +LR 60ML/HR IV SCH; -METF500T5 PO; -METO50TA16 PO; +METOCLOPRAMIDE HCL 10 MG TABLET PO SCH; -SOTA80TA20 PO; -WARF5TAB90 PO
[2018-11-21] MEDS: ACETAMINOPHEN 500 MG TAB PO SCH ×3 (06:00→20:46)
[2018-11-21] MEDS ORDERED: LR 500ML BOLUS, THEN 15ML/HR IV SCH (06:00)
[2018-11-21] MEDS ORDERED: CEFAZOLIN 2000MG 2,000 MG/15 ML SYR IV SCH (06:00)
[2018-11-21] MEDS ORDERED: LR 60ML/HR IV SCH (06:00)
[2018-11-21 06:05] LABS: INR 1.1 (0.9-1.1); Partial Thromboplastin Ratio 0.9; Partial Thromboplastin Time 25.4 Seconds (21.0-31.0); Prothrombin Time 11.2 Seconds (9.0-12.0)
[2018-11-21] MEDS: FAMOTIDINE 20 MG TAB PO SCH (06:07)
[2018-11-21] MEDS: GABAPENTIN 300 MG CAP PO SCH (06:08)
[2018-11-21] MEDS: METOCLOPRAMIDE HCL 10 MG TABLET PO SCH (06:08)
[2018-11-21] MEDS ORDERED: MoRPHine SULFATE PF 1 MG/ML 10 ML AMP/VIAL ONE (06:19)
[2018-11-21] MEDS ORDERED: fentaNYL citrate 100 MCG/2 ML VIAL ONE (06:19)
[2018-11-21] MEDS ORDERED: MIDAZOLAM HCL 1 MG/ML 2ML VIAL ONE ×2 (06:19→07:14)
[2018-11-21] MEDS ORDERED: BUPIVACAINE 0.5 % 5 MG/1 ML PF 10ML VIAL ONE (06:21)
[2018-11-21] MEDS ORDERED: BACITRACIN INJ 50,000 UNIT VIAL ONE (06:36)
[2018-11-21] MEDS ORDERED: BUPIVACAINE/EPINEPHRINE 0.5% MPF 1:200,000 30 ML VIAL ONE (06:36)
--- NOTE | 2018-11-21 06:53 | History & Physical Bridge Note ---
Date of Service November 21, 2018 History & Physical Bridge Note I have examined the patient, reviewed the History & Physical and in the interval since the performance of the History & Physical I have noted the following changes of clinical significance: no changes noted
[2018-11-21] MEDS ORDERED: PROPOFOL IV EMULSION 10 MG/ML 20 ML VIAL IV ONE (07:10)
[2018-11-21] MEDS ORDERED: ePHEDrine sulfate 50 MG/ML AMP ONE (07:16)
[2018-11-21] MEDS ORDERED: KETAMINE HCL INJ 50 MG/ML 10 ML VIAL ONE (07:35)
[2018-11-21] MEDS ORDERED: ePHEDrine sulfate 50 MG/ML AMP IV PRN ×2 (07:38→10:50)
[2018-11-21] MEDS ORDERED: ONDANSETRON INJ 2 MG/ML 2 ML VIAL IV PRN (07:38)
[2018-11-21] MEDS ORDERED: fentaNYL citrate 100 MCG/2 ML VIAL IV PRN (07:38)
[2018-11-21] MEDS ORDERED: ATROPINE SULFATE 0.1 MG/ML 10ML SYR IV PRN (07:38)
[2018-11-21] MEDS ORDERED: MoRPHine SULFATE 10 MG/ML CARP/VIAL IV PRN (07:38)
--- NOTE | 2018-11-21 08:22 | Post Operative Brief Note ---
PG Immediate Post Op with CF Date of Surgery November 21, 2018 Pre & Post Diagnosis Operation Date: 11/21/18 07:00 Pre-Op Diagnosis: Right Hip Advanced Degenerative Joint Disease Post-Op Diagnosis: Right Hip Advanced Degenerative Joint Disease Procedure Operation Date: 11/21/18 07:00 Actual Procedures p Right Total Hip Arthroplasty--Uncemented(Right) - Ariel Boyce MD Surgeon Ariel Boyce MD Hospitalist Nocturnist Physician Stephany, pac Estimated Blood Loss 200 Findings Consistent with Post-Op Diagnosis Fluids 1200 Specimens Specimen Description: A. Right Femoral Head Drains Barrientos Catheter (A 16 Prydeinig barrientos catheter was inserted by SAWYER Valles, without difficulty, concentrated yellow urine obtained, output to be monitored by Anesthesia.) Anesthesia Type Spinal MAC Complications none Disposition Accompanied Patient To Recovery: Yes Disposition: Recovery Room
--- NOTE | 2018-11-21 08:53 | Operative Report ---
DATE OF OPERATION: 11/21/2018 SURGEON: Ariel Boyce MD NIB ASSEMBLER: SAWYER Ray PREOPERATIVE DIAGNOSIS: Right hip degenerative joint disease. POSTOPERATIVE DIAGNOSIS: Right hip degenerative joint disease. PROCEDURE PERFORMED: Right uncemented ceramic on highly cross-linked polyethylene total hip arthroplasty. COMPLICATIONS: None. ESTIMATED BLOOD LOSS: 200 mL. FLUID REPLACEMENT: 1200 mL crystalloid fluid replacement. ANESTHESIA: Spinal. DRAINS: None. SPECIMEN: Right femoral head sent for pathology. OPERATIVE INDICATIONS: The patient is an 78-year-old fairly active, healthy gentleman who has had a long history of hip problems. He underwent a left hip replacement about 3 years ago. He is doing quite well with this. Over the years, he developed increased pain and discomfort in the right hip that has become more incapacitating and limiting his function and daily activities. X-rays showed advanced hip arthritis. He elected to proceed with surgical treatment. OPERATIVE FINDINGS: Operative findings revealed advanced right hip DJD. He had advanced grade 4 [id number] disease of the femoral head and acetabulum. He had osteophytes around the femoral head as well as the anterior acetabulum. OPERATIVE IMPLANTS: Operative implants consisted of: 1. A Biomet G7 size 58-mm acetabular shell. 2. An apex hole eliminator. 3. A 6.5 cancellous acetabular screws, 1 at 35 mm in length and 1 at 25 mm in length. 4. A Biomet size 58/40 highly cross-linked polyethylene liner. 5. A DePuy Corail size 10 KLA femoral stem. 6. A +5/40 mm ceramic articular ball. OPERATIVE PROCEDURE: The patient was taken to the operating room, identified and placed on the operating table in supine position. All contact areas were appropriately padded. IV antibiotics provided by anesthesia team. A spinal anesthetic had been implemented in the holding area. Loaiza catheter was placed in sterile fashion. The patient was then placed in the left lateral decubitus position. An axillary roll was placed. Stlberg hip positioner was used for positioning. Right hip and leg were then prepped and draped in usual sterile fashion. A posterolateral approach to the right hip was then performed through a curvilinear incision centered over the greater trochanter. Sharp dissection was carried through subcutaneous tissue down to the level of the IT band and gluteal fascia. The IT band and gluteal fascia was incised longitudinally in line with skin incision. The greater trochanteric bursa was excised. The piriformis and external rotators were tagged and taken off the posterior aspect of the hip joint capsule. Great care was taken throughout the procedure to protect the sciatic nerve at all times. Posterior capsulotomy was then performed leaving a large flap for later repair. Hip was internally rotated and dislocated. Femoral neck osteotomy cut was made with the final cut about 11 mm above the lesser trochanter. Femoral head was removed and sent for pathology. The femur was retracted anteriorly. Attention was then drawn to the acetabulum. The acetabulum labrum was excised. The pulvinar fat was excised. Sequential reaming of the acetabulum was then performed beginning with size 49 progressing up to 57. A 58 mm Biomet G7 acetabular shell was then placed in about 40 degrees of lateral opening and 20 degrees of anteversion. It was fixed with two 6.5 cancellous acetabular screws. A trial liner was placed. The anterior osteophyte was removed. Attention was then drawn to the femur. The proximal femur was entered with cookie cutter followed by canal finder. I broached beginning with a size 8 and progressing up to a 10. His cancellous bone was extremely good. Therefore, I elected not to broach any more due to his age and the good cancellous bone structure and support. I used a calcar reamer to smoothen off the calcar. We trialed the hip and the +5 articular ball seemed to recreate leg lengths equal and soft tissue tension, it was appropriately stable in full extension and external rotation, flexion to 90 degrees, internal rotation to over [address] I elected to place these implants. All trial implants were removed. An apex hole eliminator was placed. Highly cross-linked polyethylene liner was placed. A DePuy Corail size 10 KLA femoral stem was impacted in position. A +5/40 mm articular ball was placed. Hip was located and once again found to be stable. Attention was then drawn toward closing. The wound was irrigated with copious amounts of pulsatile lavage solution. I did inject locally with 60 mL of 0.5% Marcaine with epinephrine. Posterior capsule and external rotators were then repaired through drill holes in the posterior trochanter with #2 Ti-Cron suture. The IT band and gluteal fascia were then closed with #1 PDS suture in running fashion. The subcutaneous tissue was then closed with a combination of #1 Vicryl suture and 2-0 Dexon suture in a buried interrupted fashion. Skin was closed with skin chreyl. Leg was then cleaned, dried and a sterile dressing with Xeroform, 4 x 4, sterile ABD pad and foam tape was applied. The patient then transferred to the recovery room in stable condition. The patient tolerated the procedure well with no complication. All needle and sponge counts were correct at the end of the operation. I attest to the content of the Intraoperative Record and any orders documented therein. Any exception s are noted below.
--- NOTE | 2018-11-21 08:54 | Anesthesiology Progress Note ---
Date of Service November 21, 2018 Anesthesia Post Procedure Vital Signs Vital Signs: Temp Pulse Pulse Resp BP Pulse Ox 11/21/18 08:40 52 L 12 149/67 H 100 11/21/18 08:30 55 L 18 162/74 H 100 11/21/18 08:23 36.2 C L 54 L 18 169/68 H 100 11/21/18 05:38 36.7 C 54 L 18 133/62 96 Transfer of Care Handoff Completed per policy Notes Mental Status: alert / awake / arousable and participated in evaluation Patient Amnestic to Procedure: Yes Nausea / Vomiting: adequately controlled Pain: adequately controlled Airway Patency, RR, SpO2: stable & adequate BP & HR: stable & adequate Hydration State: stable & adequate Neuraxial Anesthesia: was administered and sensory block is resolving Anesthetic Complications: no major complications apparent and Pt Satisfied with anesthetic care
--- NOTE | 2018-11-21 09:18 | XRay Report ---
XR hip 1V RT w pelvis CLINICAL HISTORY: Total right hip arthroplasty. COMPARISON: Pelvis radiograph October 10, 2018. FINDINGS: Alignment of the total right hip arthroplasty is anatomic. There is no fracture or unexpec nathan radiopaque foreign body. There are acetabular screws and skin staple. A left hip arthroplasty is noted. IMPRESSION: Expected findings following total right hip arthroplasty. Electronically signed by: Terence Shay M.D. 11/21/2018 9:17 AM
[2018-11-21] MEDS ORDERED: HYDROmorphone INJ 0.5 MG/0.5 ML SYR IV PRN (09:45)
[2018-11-21] MEDS ORDERED: CARBOHYDRATES FOR HYPOGLYCEMIA PO PRN (09:45)
[2018-11-21] MEDS ORDERED: DEXTROSE 50% 50 ML SYRINGE IV PRN (09:45)
[2018-11-21] MEDS ORDERED: BISACODYL 10 MG SUPP PR PRN (09:45)
[2018-11-21] MEDS ORDERED: GLUCOSE 40% GEL 15 GM TUBE PO PRN (09:45)
[2018-11-21] MEDS ORDERED: TAMSULOSIN HCL 0.4 MG CAP PO PRN (09:45)
[2018-11-21] MEDS ORDERED: NALOXONE HCL 0.4 MG/1 ML VIAL/CARP IV PRN ×2 (09:45→10:50)
[2018-11-21] MEDS ORDERED: MAGNESIUM HYDROXIDE SUSP 30 ML UDC PO PRN (09:45)
[2018-11-21] MEDS ORDERED: PHARMACY GLYCEMIC MGMT CONSULT STA (09:45)
[2018-11-21] MEDS ORDERED: GLUCAGON FOR INJ 1 MG VIAL SQ PRN (09:45)
[2018-11-21] MEDS ORDERED: GLUCOSE 10 TABS/TUBE PO PRN (09:45)
[2018-11-21] MEDS ORDERED: PHARMACY GLYCEMIC MGMT CONSULT PRN (10:15)
[2018-11-21] MEDS ORDERED: PROMETHAZINE HCL 6.25 MG in SODIUM CHLORIDE 0.9% 50 ML IV PRN (10:50)
[2018-11-21] MEDS ORDERED: LACTATED RINGER'S 500 ML IV PRN (10:50)
[2018-11-21] MEDS ORDERED: DiphenhydrAMINE HCL 50 MG/ML VIAL IV PRN (10:50)
[2018-11-21] MEDS ORDERED: MoRPHine SULFATE PF 1 MG/ML 10 ML AMP/VIAL INT SPINAL ONE (10:50)
[2018-11-21] MEDS ORDERED: NALOXONE HCL 0.08 MG in SYRINGE 1.8 ML IV PRN (10:50)
[2018-11-21] MEDS ORDERED: NALBUPHINE HCL INJ 10 MG/ML AMP IV PRN (10:50)
[2018-11-21] MEDS ORDERED: NALOXONE HCL 1 MG in SODIUM CHLORIDE 0.9% 1000ML 1,000 ML IV PRN (10:50)
[2018-11-21] MEDS ORDERED: SODIUM CHLORIDE 0.9% 1000ML 1,000 ML IV SCH (11:00)
[2018-11-21] MEDS ORDERED: NO NARCOTICS OR SEDATIVES SCH (11:00)
[2018-11-21] MEDS ORDERED: DC INTRASPINAL MORPHINE SCH (11:00)
[2018-11-21] MEDS ORDERED: LANTUS PER UNIT CHARGE SQ ONE (11:00)
--- NOTE | 2018-11-21 11:19 | Pharmacy Report ---
Glycemic Control Consultation - Date of Service November 21, 2018 - Scope Scope: Glycemic Pharmacist consulted by Dr Boyce on 11/21/18 for glycemic control and to write orders per [facility] inpatient glycemic control protocol - Objective Weight: 98.7 kg Accuchecks BSG (last 24hrs): 11/21/18 11/21/18 05:53 09:34 POC Glucose 157 H 188 H - Recent Pertinent Medications Outpatient Anti-diabetic Regimen: * Metformin ER 500 mg PO daily * A1c = ordered for 11/22/18 - Assessment & Plan Assessment & Plan: ASSESSMENT: * Patient is POD #0 s/p right total hip arthroplasty * No steroids administered perioperatively * PMH significant for type 2 DM, hypertension, atrial fibrillation, dyslipidemia, and BPH * Patient's postoperative BSG was 188 mg/dL PLAN FOR INPATIENT GLYCEMIC CONTROL: * Holding outpatient oral diabetes medications * Consider initiation of home metformin prior to discharge if renal function stable * Basal insulin * Lantus 20 units SC x 1 this afternoon (0.2 unit/kg) * Bolus insulin - weight-based and stress of 2 * NovoLog per scale ACHS or Q6hrs while NPO * Goal Range: Low 110 mg/dL - High 140 mg/dL * Correction Factor: 25 mg/dL/unit * Nutritional / Prandial insulin per carb ratio of 1 unit per 8 grams CHO consumed * Please note that the plan above was derived based on current level of insulin resistance and hospital stress. These recommendations are appropriate for inpatient admission only. Plan of care upon discharge will need to be reassessed to avoid potential outpatient hypo/hyperglycemia. Thank you.
[2018-11-21] MEDS: SODIUM CHLORIDE 0.9% 1000ML 1,000 ML IV SCH ×2 (11:21→20:38)
[2018-11-21] MEDS: DOCUSATE SODIUM 100 MG CAP PO SCH ×2 (11:24→20:39)
[2018-11-21] MEDS: CYANOCOBALAMIN 500 MCG TABLET (VITAMIN B-12) PO SCH (11:24)
[2018-11-21] MEDS: MULTIVITAMIN TAB PO SCH (11:24)
--- NOTE | 2018-11-21 12:58 | Progress Note ---
DATE: 11/21/2018 SUBJECTIVE: An 78-year-old gentleman, postop from a right hip replacement. He is doing well. Not having any pain yet. No chest pain or shortness of breath. Not feeling dizzy or lightheaded. OBJECTIVE: VITAL SIGNS: Temperature 36.4. Vital signs stable. GENERAL: Shows a pleasant elderly male. He is lying in bed and I had to wake him up. Seems a bit groggy. Denies any pain. LUNGS: Clear to auscultation. HEART: Has regular rate and rhythm. ABDOMEN: Soft, nontender, nondistended. EXTREMITIES: Grossly neurovascularly intact except as follows: Examination of the right hip and leg reveals his leg lengths to be equal. Dressing is clean, dry and intact. Thigh is soft and supple. Hip is located. He is neurologically intact. He can dorsiflex and plantarflex his foot appropriately. X-RAYS: X-rays of the right hip were reviewed from the recovery room. It shows right uncemented total hip replacement. Components looked to be in good position. No signs of problems. ASSESSMENT: An 78-year-old gentleman postop from right hip replacement, doing well. He has got some chronic atrial fibrillation and on Coumadin preoperatively. PLAN: 1. DVT prophylaxis including thigh-high TEDs, SCDs, and Coumadin. We will start him back on loading dose tonight. 2. PT/OT. Weight bear as tolerated. Right total hip protocol. 3. Pain control, doing well with current pain regimen. 4. IV antibiotics x24 hours. 5. Disposition: Plan to discharge to [facility] for a brief rehab/correction facility stay once adequately recovered and medically stable.
[2018-11-21] MEDS: KETOROLAC TROMETHAMINE 15 MG/ML VIAL IV SCH ×2 (13:14→17:58)
[2018-11-21] MEDS: ONDANSETRON INJ 2 MG/ML 2 ML VIAL IV PRN (13:28)
[2018-11-21] MEDS: INSULIN ASPART 100 UNITS/ML 3 ML PEN SC SCH ×3 (13:34→20:43)
[2018-11-21] MEDS: CEFAZOLIN 2000MG 2,000 MG/15 ML SYR IV SCH ×2 (15:11→22:23)
[2018-11-21] MEDS ORDERED: WARFARIN SOD 7.5 MG TAB PO ONE (16:00)
[2018-11-21] MEDS: FERROUS GLUCONATE 324 MG TAB PO SCH (16:50)
[2018-11-21] MEDS: ASCORBIC ACID 500 MG TAB PO SCH (16:50)
[2018-11-21] MEDS: SENNA 8.6 MG TAB PO SCH (20:39)
[2018-11-21] MEDS: ASPIRIN 81 MG ECTAB PO SCH (20:39)
[2018-11-21] MEDS: ATORVASTATIN 40 MG TAB PO SCH (20:40)
[2018-11-21] MEDS: FINASTERIDE 5 MG TAB PO SCH (20:40)
[2018-11-21] MEDS: METOPROLOL TARTRATE 50 MG TAB PO SCH (20:40)
[2018-11-21] MEDS: SOTALOL HCL 80 MG TAB PO SCH (20:41)
[2018-11-22 05:56] LABS: Basophils # (auto) 0.01 K/uL (0-0.2); Basophils % (auto) 0.1 %; Eosinophils # (auto) 0.08 K/uL (0-0.5); Eosinophils % (auto) 0.6 %; Hematocrit (blood only) 30.2 % (42-52); Hemoglobin 9.8 g/dL (14.0-18.0); Immature Granulocytes # (auto) 0.02 K/uL (0.00-0.02); Immature Granulocytes % (auto) 0.2 %; Lymphocytes # (auto) 1.17 K/uL (1.2-3.4); Lymphocytes % (auto) 9.4 %; Mean Corpuscular Hemoglobin 31.7 pg (25-34); Mean Corpuscular Hgb Conc 32.5 g/dL (32-36); Mean Corpuscular Volume 97.7 fL (80-100); Monocytes # (auto) 1.07 K/uL (0.11-0.59); Monocytes % (auto) 8.6 %; Neutrophils # (auto) 10.07 K/uL (1.4-6.5); Neutrophils % (auto) 81.1 %; Platelet Count 225 K/uL (130-400); RDW Coefficient of Variation 12.9 % (11.5-14.5); RDW Standard Deviation 45.3 fL (36.4-46.3); Red Blood Count 3.09 M/uL (4.7-6.1); White Blood Count 12.42 K/uL (4.8-10.8)
[2018-11-22] MEDS: ACETAMINOPHEN 500 MG TAB PO SCH ×4 (06:03→22:05)
[2018-11-22] MEDS: KETOROLAC TROMETHAMINE 15 MG/ML VIAL IV SCH ×4 (06:05→17:41)
[2018-11-22] MEDS: SODIUM CHLORIDE 0.9% 1000ML 1,000 ML IV SCH (06:15)
[2018-11-22 06:18] LABS: INR 1.1 (0.9-1.1); Prothrombin Time 11.2 Seconds (9.0-12.0)
[2018-11-22 06:31] LABS: BUN Creatinine Ratio 14.5 (10-20); Calcium 7.7 mg/dl (8.5-10.1); Creatinine Clr Calc Pharmacy 75.7 ml/min; Est GFR (African American) 88.4; Est GFR (Non-African American) 76.3; Potassium 3.7 mmol/L (3.5-5.1)
[2018-11-22 07:52] LABS: Estimated Average Glucose 192 mg/dl; Hemoglobin A1C 8.3 % (4.5-5.6)
--- NOTE | 2018-11-22 08:11 | Progress Note ---
DATE: 11/22/2018 SUBJECTIVE: An 78-year-old gentleman postop day 1 from right total hip replacement. He is doing pretty well. Pain is controlled. Had a good night. No chest pain or shortness of breath. Not feeling dizzy or lightheaded. OBJECTIVE: VITAL SIGNS: Temperature 36.8. Vital signs stable. GENERAL: Shows a pleasant elderly male. He is lying in bed, looks comfortable. EXTREMITIES: Examination of the right leg reveals leg lengths to be equal. Dressing is clean, dry and intact. Thigh is soft and supple. He can dorsiflex and plantarflex his foot appropriately. LABORATORY DATA: Hemoglobin is 9.8, hematocrit 32.2. Electrolytes are stable. ASSESSMENT: An 78-year-old gentleman postoperative day 1 from a right total hip replacement, doing well. His pain is controlled. Hip is located. He is neurologically intact. He has a history of atrial fibrillation, on Coumadin. PLAN: 1. DVT prophylaxis including thigh-high TEDs, SCDs, and back on his Coumadin. We gave him a loading dose yesterday and we will continue to monitor and dose his Coumadin appropriately to keep his INR between 2 and 3. 2. PT/OT. Weight bear as tolerated. Right total hip protocol. 3. Pain control, doing well with current pain regimen. 4. Diabetes. We will use insulin sliding scale coverage. 5. Disposition: He is hoping to go to [facility] for a brief rehab stay before going home. Social service will work on that today.
[2018-11-22] MEDS: SOTALOL HCL 80 MG TAB PO SCH ×2 (08:55→20:58)
[2018-11-22] MEDS: FERROUS GLUCONATE 324 MG TAB PO SCH ×2 (08:55→17:37)
[2018-11-22] MEDS: METOPROLOL TARTRATE 50 MG TAB PO SCH ×2 (08:56→20:59)
[2018-11-22] MEDS: DOCUSATE SODIUM 100 MG CAP PO SCH ×2 (08:57→20:58)
[2018-11-22] MEDS: ASCORBIC ACID 500 MG TAB PO SCH ×2 (08:57→17:37)
[2018-11-22] MEDS: CYANOCOBALAMIN 500 MCG TABLET (VITAMIN B-12) PO SCH (08:58)
[2018-11-22] MEDS: INSULIN ASPART 100 UNITS/ML 3 ML PEN SC SCH ×4 (08:59→21:03)
[2018-11-22] MEDS ORDERED: INSULIN GLARGINE SOLOSTAR 100 UNITS/ML 3 ML PEN SC ONE (09:00)
[2018-11-22] MEDS: GABAPENTIN 300 MG CAP PO SCH (09:05)
[2018-11-22] MEDS: FAMOTIDINE 20 MG TAB PO SCH (09:05)
[2018-11-22] MEDS: METOCLOPRAMIDE HCL 10 MG TABLET PO SCH (09:05)
[2018-11-22] MEDS: MULTIVITAMIN TAB PO SCH (09:37)
--- NOTE | 2018-11-22 10:37 | Pharmacy Report ---
Glycemic Control Progress Note - Date of Service November 22, 2018 - Scope Glycemic Pharmacist consulted for glycemic control to write orders per [facility] inpatient glycemic control protocol. - Objective Accuchecks BSG(last 24 hours):: 11/21/18 11/21/18 11/21/18 12:05 17:14 20:35 Glucose POC Glucose 188 H 207 H 246 H 11/22/18 11/22/18 05:40 08:04 Glucose 193 H POC Glucose 184 H HbA1c:: Hemoglobin A1c 8.3 % (4.5-5.6) H 11/22/18 05:40 - Recent Pertinent Medications The patient is currently receiving: * Basal insulin: Lantus 20 units X 1 * Correctional Insulin: Novolog Correction per scale ACHS Goal Range: Low 110 mg/dL - High 140 mg/dL Correction Factor: 25 mg/dL/unit * Prandial insulin: Per carb ratio of 1 unit per 8 grams CHO consumed - Outpatient Anti-Diabetic Meds metformin xr 500 mg po daily - Assessment & Plan ASSESSMENT: * See progress note from 11/21/18 for more background info, in short: * Pt receiving SQ basal bolus insulin regimen for hyperglycemia secondary to baseline DM (outpatient regimen on hold),stress/infection, currently POD 1. Kidney function is okay. * Patient is currently receiving an average of 32 units of insulin per day * 20 units of basal insulin * 12 units of prandial/correctional insulin * BSGs ranging 157 - 246 mg/dl over the past 24hrs * Changes needed to insulin regimen: * AM Fasting BSG = 193 mg/dl. This is above goal range for patient based on inpatient targets and co-morbidities. Therefore Basal insulin will be continued at 20 units daily in the morning. Scale for this evening to be available. * Post-prandial BSGs are elevated. Evening blood sugar was less than 2 hours after dinner blood sugar check/ insulin administration. Still, though, the patient requires more bolus coverage. Tighten to between weight-based stress of 2 and 3. * Total daily dose = >30 units. * Additional notes / comments: restart metformin with dinner PLAN FOR INPATIENT GLYCEMIC CONTROL: * Continuing Lantus 20 units SQ daily + add Lantus 10 units HS if blood sugar greater than 180 mg/dL * TIGHTENING correction factor to 20 mg/dl/unit * TIGHTENING carb ratio to 1 unit per 6 grams CHO consumed * Continuing goal range of Low 110 mg/dL - High 140 mg/dL * Please note that the plan above was derived based on current level of insulin resistance and hospital stress. These recommendations are appropriate for inpatient admission only. Plan of care upon discharge will need to be reassessed to avoid potential outpatient hypo/hyperglycemia. Thank you.
[2018-11-22] MEDS: ONDANSETRON INJ 2 MG/ML 2 ML VIAL IV PRN ×2 (15:36→21:19)
[2018-11-22] MEDS: ALUMINUM/MAGNESIUM SUSP 30 ML UDC PO PRN ×2 (15:38→21:06)
[2018-11-22] MEDS ORDERED: WARFARIN SOD 6 MG TAB PO ONE (16:00)
[2018-11-22] MEDS ORDERED: METFORMIN HCL ER 500 MG TABCR PO SCH (17:00)
[2018-11-22] MEDS: METOCLOPRAMIDE HCL INJ 5 MG/ML 2 ML VIAL IV PRN (17:17)
[2018-11-22] MEDS: ASPIRIN 81 MG ECTAB PO SCH (20:58)
[2018-11-22] MEDS: SENNA 8.6 MG TAB PO SCH (20:58)
[2018-11-22] MEDS: ATORVASTATIN 40 MG TAB PO SCH (20:58)
[2018-11-22] MEDS: FINASTERIDE 5 MG TAB PO SCH (20:58)
[2018-11-22] MEDS ORDERED: INSULIN GLARGINE SOLOSTAR 100 UNITS/ML 3 ML PEN SC SCH (21:00)
[2018-11-23] MEDS: KETOROLAC TROMETHAMINE 15 MG/ML VIAL IV SCH ×2 (00:10→05:10)
[2018-11-23] MEDS: METOCLOPRAMIDE HCL INJ 5 MG/ML 2 ML VIAL IV PRN (00:12)
[2018-11-23] MEDS: ACETAMINOPHEN 500 MG TAB PO SCH ×3 (05:09→21:06)
[2018-11-23] MEDS: ALUMINUM/MAGNESIUM SUSP 30 ML UDC PO PRN ×4 (05:09→23:30)
[2018-11-23 05:42] LABS: INR 1.3 (0.9-1.1); Prothrombin Time 12.7 Seconds (9.0-12.0)
[2018-11-23] MEDS ORDERED: METFORMIN HCL ER 500 MG TABCR PO SCH ×2 (08:00→16:30)
--- NOTE | 2018-11-23 08:15 | Progress Note ---
DATE: 11/23/2018 SUBJECTIVE: An 78-year-old gentleman postop day 2 from right total hip replacement. He is doing pretty well from the pain standpoint. Not much hip pain. He has a little bit of GI discomfort that he has had. He does have a history of some peptic ulcers in the past. Denies any chest pain or shortness of breath. Not feeling dizzy or lightheaded. Hip pain is controlled. OBJECTIVE: VITAL SIGNS: Temperature 36.9. Vital signs stable. GENERAL: Shows a pleasant elderly male. He is lying in bed, looks pretty comfortable. LUNGS: Clear to auscultation. HEART: Has a regular rate and rhythm. ABDOMEN: Soft, nontender. There is no significant discomfort to palpation of his belly. He does have bowel sounds. EXTREMITIES: Examination of the right lower extremity reveals the dressing to be clean, dry and intact. Leg lengths are equal. Hip is located. He is neurologically intact. ASSESSMENT: An 78-year-old gentleman postoperative day 2 from right total hip replacement, doing pretty well. Hip pain is controlled. He has had a little gastrointestinal discomfort, which I think is likely concerning for some peptic ulcer disease. He does have a history of this in the past. It does not seem cardiac in nature. Difficulty in fact he needs to be on coumadin for A fib, yet this increases risk of GI bleed. Will try to balance needs carefully PLAN: 1. DVT prophylaxis including thigh-high TEDs, SCDs, and coumadin to keep INR just above 2.0. 2. PT/OT. Weight bear as tolerated. Right total hip protocol. 3. Pain control, doing well with current pain regimen. 4. Gastrointestinal discomfort. We will make sure he is on GI meds for ulcer prophylaxis. 5. Disposition: He is hoping to be discharged to [facility]. We will see how his medical situation progresses over the next 24 hours. We will see if we can get his abdominal pain under control. There are no signs of obstruction or cardiac etiology. ELLA
[2018-11-23] MEDS: FERROUS GLUCONATE 324 MG TAB PO SCH ×2 (08:59→18:09)
[2018-11-23] MEDS: ASCORBIC ACID 500 MG TAB PO SCH ×2 (08:59→18:10)
[2018-11-23] MEDS: MULTIVITAMIN TAB PO SCH (08:59)
[2018-11-23] MEDS: CYANOCOBALAMIN 500 MCG TABLET (VITAMIN B-12) PO SCH (09:00)
[2018-11-23] MEDS: DOCUSATE SODIUM 100 MG CAP PO SCH ×2 (09:00→21:04)
[2018-11-23] MEDS: METOPROLOL TARTRATE 50 MG TAB PO SCH ×2 (09:00→21:04)
[2018-11-23] MEDS: SOTALOL HCL 80 MG TAB PO SCH ×2 (09:01→21:03)
[2018-11-23] MEDS: INSULIN GLARGINE SOLOSTAR 100 UNITS/ML 3 ML PEN SC SCH ×2 (09:02→21:09)
[2018-11-23] MEDS: INSULIN ASPART 100 UNITS/ML 3 ML PEN SC SCH ×4 (09:03→21:14)
--- NOTE | 2018-11-23 09:28 | Pharmacy Report ---
Glycemic Control Progress Note - Date of Service November 23, 2018 - Scope Glycemic Pharmacist consulted for glycemic control to write orders per [facility] inpatient glycemic control protocol. - Objective Accuchecks BSG(last 24 hours):: 11/22/18 11/22/18 11/22/18 12:14 17:16 20:55 POC Glucose 95 196 H 225 H 11/23/18 07:58 POC Glucose 173 H HbA1c:: Hemoglobin A1c 8.3 % (4.5-5.6) H 11/22/18 05:40 - Recent Pertinent Medications The patient is currently receiving: * Basal insulin: Lantus 20 units X 1 THEN 10 UNITS AT BEDTIME IF BLOOD SUGAR OVER 180 MG/DL * Correctional Insulin: Novolog Correction per scale ACHS Goal Range: Low 110 mg/dL - High 140 mg/dL Correction Factor: 25 mg/dL/unit * Prandial insulin: Per carb ratio of 1 unit per 8 grams CHO consumed - Outpatient Anti-Diabetic Meds METFORMIN ER 500 MG DAILY - Assessment & Plan ASSESSMENT: * See progress note from 11/21/18 for more background info, in short: * Pt receiving SQ basal bolus insulin regimen for hyperglycemia secondary to baseline DM (outpatient regimen on hold),stress/infection (POD 2). * Patient is currently receiving an average of 57 units of insulin per day * 30 units of basal insulin * 27 units of prandial/correctional insulin * BSGs ranging 95 - 225 mg/dl over the past 24hrs * Changes needed to insulin regimen: * AM Fasting BSG = 173 mg/dl. This is ABOVE goal range for patient based on inpatient targets and co-morbidities. Therefore Basal insulin WILL BE INCREASED SLIGHTLY TO 17 UNITS TWICE DAILY (TOTAL OF 34 UNITS/DAY) * Post-prandial BSGs are TRENDED DOWNWARDS AT LUNCH BUT THEN WENT UP THE REST OF THE DAY. CF OF 20 MG/DL MAY BE TOO AGGRESSIVE SO THEREFORE LEFT CF OF 25 MG/DL TODAY. TIGHTENED CARBOHYDRATE RATIO THIS WAS NOT SUFFICIENT YESTERDAY * Total daily dose = 65-70 units. PLAN FOR INPATIENT GLYCEMIC CONTROL: * CHANGING Lantus 17 units SQ BID * Continuing correction factor OF 25 mg/dl/unit * Changing carb ratio to 1 unit per 7 grams CHO consumed * Continuing goal range of Low 110 mg/dL - High 140 mg/dL RECOMMENDATIONS FOR DISCHARGE: * A1c = 8.3 % on 11/22/18 * Goal A1c = ~7.5 % based on age and comorbidities * Patient requires titration of metformin XR to 1000 mg PO BID * Please note that the plan above was derived based on current level of insulin resistance and hospital stress. These recommendations are appropriate for inpatient admission only. Plan of care upon discharge will need to be reassessed to avoid potential outpatient hypo/hyperglycemia. Thank you.
[2018-11-23] MEDS ORDERED: WARFARIN SOD 5 MG TAB PO ONE (16:00)
[2018-11-23] MEDS: ATORVASTATIN 40 MG TAB PO SCH (21:04)
[2018-11-23] MEDS: ASPIRIN 81 MG ECTAB PO SCH (21:04)
[2018-11-23] MEDS: FINASTERIDE 5 MG TAB PO SCH (21:05)
[2018-11-23] MEDS: SENNA 8.6 MG TAB PO SCH (21:05)
[2018-11-24] MEDS: TRAMADOL HCL 50 MG TABLET PO PRN ×3 (03:10→15:54)
[2018-11-24 05:30] LABS: INR 1.4 (0.9-1.1); Prothrombin Time 14.2 Seconds (9.0-12.0)
[2018-11-24] MEDS: ALUMINUM/MAGNESIUM SUSP 30 ML UDC PO PRN ×2 (05:39→13:40)
[2018-11-24] MEDS: ACETAMINOPHEN 500 MG TAB PO SCH ×2 (05:39→13:35)
[2018-11-24] MEDS: SOTALOL HCL 80 MG TAB PO SCH (08:00)
[2018-11-24] MEDS: ASCORBIC ACID 500 MG TAB PO SCH (08:01)
[2018-11-24] MEDS: FERROUS GLUCONATE 324 MG TAB PO SCH (08:01)
[2018-11-24] MEDS: MULTIVITAMIN TAB PO SCH (08:01)
[2018-11-24] MEDS: DOCUSATE SODIUM 100 MG CAP PO SCH (08:01)
[2018-11-24] MEDS: METOPROLOL TARTRATE 50 MG TAB PO SCH (08:01)
[2018-11-24] MEDS: CYANOCOBALAMIN 500 MCG TABLET (VITAMIN B-12) PO SCH (08:01)
[2018-11-24] MEDS: INSULIN ASPART 100 UNITS/ML 3 ML PEN SC SCH ×2 (08:03→13:36)
[2018-11-24] MEDS: INSULIN GLARGINE SOLOSTAR 100 UNITS/ML 3 ML PEN SC SCH (08:04)
[2018-11-24] MEDS ORDERED: INSULIN GLARGINE SOLOSTAR 100 UNITS/ML 3 ML PEN SC SCH ×2 (09:00→21:00)
--- NOTE | 2018-11-24 09:23 | Progress Note ---
DATE: 11/24/2018 SUBJECTIVE: An 78-year-old gentleman postop day 3 from a right total hip replacement. He is doing better this morning. His stomach is feeling better. No chest pain or shortness of breath. Hip pains are very manageable. Not feeling dizzy or lightheaded. OBJECTIVE: VITAL SIGNS: Temperature 37.0. Vital signs stable. GENERAL: Shows a pleasant elderly male. He is sitting up in bed, looks quite comfortable. EXTREMITIES: Examination of the right hip reveals leg lengths to be equal. Dressing is clean, dry and intact. Hip is located. He is neurologically intact. ASSESSMENT: An 78-year-old gentleman postop day 3 from right hip replacement, doing pretty well. I do think that his GI symptoms are improved and I think they are likely related to stress and some reflux. His pain is controlled. Hip is located. PLAN: 1. DVT prophylaxis including thigh-high TEDs, SCDs and Coumadin. Goal will be to keep his INR just slightly above. 2. PT/OT. Weight bear as tolerated. Right total hip protocol. 3. Pain control. Doing pretty well with current pain regimen. 4. Gastrointestinal irritation. We will continue on H2 alma. 5. Disposition. Plan to discharge to [facility] once medically stable and accepted.
--- NOTE | 2018-11-24 14:21 | Pharmacy Report ---
Glycemic Control Progress Note - Date of Service November 24, 2018 - Scope Glycemic Pharmacist consulted for glycemic control to write orders per [facility] inpatient glycemic control protocol. - Objective Accuchecks BSG(last 24 hours):: 11/23/18 11/23/18 11/24/18 17:11 20:55 06:36 POC Glucose 124 H 157 H 134 H 11/24/18 11:51 POC Glucose 135 H HbA1c:: Hemoglobin A1c 8.3 % (4.5-5.6) H 11/22/18 05:40 - Recent Pertinent Medications The patient is currently receiving: * Basal insulin: Lantus 17 units every 12 hours * Correctional Insulin: Novolog Correction per scale ACHS Goal Range: Low 110 mg/dL - High 140 mg/dL Correction Factor: 25 mg/dL/unit * Prandial insulin: Per carb ratio of 1 unit per 7 grams CHO consumed \\\ - Outpatient Anti-Diabetic Meds metformin er 500 mg daily - Assessment & Plan ASSESSMENT: * See progress note from 11/21/18 for more background info, in short: * Pt receiving SQ basal bolus insulin regimen for hyperglycemia secondary to baseline DM (outpatient regimen on hold). Patient is POD 3. * Patient is currently receiving an average of 48 units of insulin per day * 34 units of basal insulin * 14 units of prandial/correctional insulin * BSGs ranging 124 - 173 mg/dl over the past 24hrs * Changes needed to insulin regimen: * AM Fasting BSG = 134 mg/dl. This is in goal range for patient based on inpatient targets and co-morbidities. Patient's regimen is very basal heavy. Reduce basal insulin by 30% since fastings trending downwards quickly and regimen very basal heavy. * Post-prandial BSGs are well controlled continue. * Total daily dose = ~30 units. PLAN FOR INPATIENT GLYCEMIC CONTROL: * Decreasing Lantus 17 units SQ qAM and 5 units SQ qPM * Continuing correction factor of 25 mg/dl/unit * Continuing carb ratio of 1 unit per 7 grams CHO consumed * Continuing goal range to Low 110 mg/dL - High 140 mg/dL RECOMMENDATIONS FOR DISCHARGE: * see note from 10/23/18 * Please note that the plan above was derived based on current level of insulin resistance and hospital stress. These recommendations are appropriate for inpatient admission only. Plan of care upon discharge will need to be reassessed to avoid potential outpatient hypo/hyperglycemia. Thank you.
[2018-11-24] MEDS ORDERED: WARFARIN SOD 4 MG TAB PO SCH (16:00)
--- NOTE | 2018-11-26 19:27 | Discharge Summary ---
ADMITTING PHYSICIAN AND SURGEON: Dr. Ariel Boyce. ADMITTING DIAGNOSIS: Right hip degenerative joint disease. SURGERY PERFORMED: Right total hip arthroplasty. SECONDARY DIAGNOSES: Hypertension, elevated cholesterol, paroxysmal atrial fibrillation, diabetes, BPH. CONSULTS: None obtained. HISTORY AND PHYSICAL EXAMINATION: Well documented in the patient's chart. HOSPITAL COURSE: The patient was admitted on 11/21/2018 underwent total hip arthroplasty, tolerated the procedure well. There were no complications. He was transferred to the PACU postoperatively and later to the orthopedic for further care. He was given Ancef for antibiotic prophylaxis, NIKHIL stockings, SCDs and Coumadin for DVT prophylaxis. INR was monitored daily and Coumadin dosed accordingly. He did develop some postoperative anemia, did not require any blood transfusions. He had some GI discomfort on postop day 2. He was receiving an H2 alma and by the following day was feeling much better, symptoms had improved. There were no complications during his hospital stay. By postoperative day 3, he was tolerating a diabetic diet. Postop day #3, he was transferred to a intermediate facility. He was given printed discharge instructions as well as new prescriptions for extra strength Tylenol and iron supplement, ranitidine and tramadol. Continue his home medications including warfarin, continue physical therapy, weightbearing as tolerated, NIKHIL stockings, total hip precautions. Follow up approximately 2 weeks postop or sooner if there are any problems or concerns.
== END 2018-11-24 16:45 | DRG 470 ==
LOC: ASU 05:00 → 3E 08:27
DX: M16.11 Unilateral primary osteoarthritis, right hip; Z96.642 Presence of left artificial hip joint; E78.00 Pure hypercholesterolemia, unspecified; I10 Essential (primary) hypertension; K27.9 Peptic ulcer, site unspecified, unspecified as acute or chronic, without hemorrhage or perforation; Z79.84 Long term (current) use of oral hypoglycemic drugs; I48.0 Paroxysmal atrial fibrillation; E11.9 Type 2 diabetes mellitus without complications; Z79.1 Long term (current) use of non-steroidal anti-inflammatories (NSAID); Z79.82 Long term (current) use of aspirin; Z87.891 Personal history of nicotine dependence; Z79.899 Other long term (current) drug therapy; Z79.01 Long term (current) use of anticoagulants

== ENCOUNTER 2025-01-12 15:37 | Inpatient (IN) ==
[2025-01-12 16:06] LABS: Hematocrit (blood only) 35.2 % (42.0-52.0); Hemoglobin 11.7 g/dL (14.0-18.0); Immature Granulocytes # (auto) 0.02 K/uL (0.01-0.20); Immature Granulocytes % (auto) 0.3 %; Mean Corpuscular Hemoglobin 32.0 pg (25.0-34.0); Mean Corpuscular Volume 96.2 fL (80.0-100.0); Platelet Count 245 K/uL (130-400); RDW Standard Deviation 47.1 fL (36.4-46.3); Red Blood Count 3.66 M/uL (4.70-6.10); White Blood Count 7.88 K/ul (4.8-10.8)
[2025-01-12] MEDS: OPTIRAY 320 100ml IV ONE (16:13)
[2025-01-12 16:25] LABS: Alanine Aminotransferase 16.0 U/L (7-52); Albumin Globulin Ratio 1.2 (0.9-2); Albumin Level 4.4 gm/dl (3.4-5.0); Alkaline Phosphatase 45.0 U/L (34-104); Anion Gap 6.0 (3-11); Bilirubin,Total 0.8 mg/dl (0.2-1.0); Blood Urea Nitrogen 16.0 mg/dl (6-23); Calcium 9.4 mg/dl (8.6-10.3); Carbon Dioxide 28.0 mmol/L (21-32); Chloride 104.0 mmol/L (98-107); Creatinine Clr Calc Pharmacy 62.9 ml/min; Globulin 3.8 gm/dl (2.5-4.0); Glucose 150.0 mg/dl (70-99(Fasting)); Lipase 33.0 U/L (11-82); Magnesium 2.0 mg/dl (1.7-2.4); Potassium 4.5 mmol/L (3.5-5.1); Sodium 138.0 mmol/L (136-145); Total Protein 8.2 gm/dl (6.0-8.3)
--- NOTE | 2025-01-12 16:32 | Emergency Department Note ---
History of Present Illness General Chief complaint: Trauma Stated complaint: FALL Time Seen by Provider: 01/12/25 15:39 History of Present Illness Provider complaint: fall Maximum Pain Intensity: 3 84-year-old male on Coumadin presents emergency department for fall. Patient was visiting his who is a patient and then states he does not know what happened and fell. Patient lost consciousness and was on the the ground. Patient states he is not sure if he hit his head. He is reporting pain in his right elbow. Home Medications Medication Instructions Recorded Confirmed Type aspirin 81 mg tablet,delayed 81 mg PO QAM 02/27/18 01/12/25 History release atorvastatin 40 mg tablet 40 mg PO DAILY 02/27/18 01/12/25 History sotalol 120 mg tablet 120 mg PO BID 02/27/18 01/12/25 History acetaminophen 500 mg tablet 1,000 mg PO BID 08/14/24 01/12/25 History metformin 500 mg tablet,extended 500 mg PO BID 08/14/24 01/12/25 History release 24 hr pantoprazole 40 mg tablet,delayed 40 mg PO QAM 08/14/24 01/12/25 History release semaglutide 1 mg/dose (4 mg/3 mL) 1 mg subcut DIRECTED 08/14/24 01/12/25 History subcutaneous pen injector (Ozempic) warfarin 5 mg tablet See Rx Instructions .Route .COMPLEX 08/14/24 01/12/25 History cyanocobalamin (vitamin B-12) 1,000 mcg PO Q OTHER DAY 01/12/25 01/12/25 History 1,000 mcg tablet (Vitamin B-12) polyethylene glycol 3350 17 17 g PO DIRECTED PRN 01/12/25 01/12/25 History gram/dose oral powder (Miralax) Constipation sodium chloride 0.65 % nasal spray 1 spray intranasal DIRECTED PRN 01/12/25 01/12/25 History aerosol (Saline Nasal) NASAL DRYNESS Allergies Allergy/AdvReac Type Severity Reaction Status Date / Time pollen extracts Allergy Intermediate Sneezing Verified 01/12/25 16:53 Past Med/Surg History Problem List (Updated 01/12/25 @ 18:10 by Mikhail Toro MD) Syncope and collapse (Acute) H/O bilateral hip replacements Encounter for pre-operative examination Anticoagulated on Coumadin (Acute) Epistaxis (Acute) Enlarged prostate (Chronic) BPH (benign prostatic hyperplasia) HX OF Medical History History of BPH History of jaundice as a child Aortic stenosis "MILD" (DON 1.5cm2, mead gradient 12.3mmhg per 09/2016 ECHO) Paroxysmal atrial fibrillation PSVT (paroxysmal supraventricular tachycardia) History of atrial fibrillation A. FIB/A.FLUTTER HISTORY S/P CARDIAC ABLATION; ON WARFARIN/ASA/BETA GONZALO Obesity Osteoarthritis Diabetes mellitus, type 2 NIDDM Deep vein thrombosis 2+ YEARS AGO PER CHART REVIEW- ON WARFARIN Hypertension Hyperlipidemia Surgical History S/P TAVR (transcatheter aortic valve replacement) History of transurethral resection of prostate History of nasal cauterization 2/2 EPITAXIS History of total hip arthroplasty LEFT History of esophagogastroduodenoscopy (EGD) History of colonoscopy History of cataract surgery B/L History of cardiac radiofrequency ablation 2/2 A.FIB/A.FLUTTER Social History Smoking Status: Never smoker Cigarettes Per Day: 1 ppd x 6-7 years; Second Hand Exposure: No; Do You Dip or Chew Tobacco: No; Hx Alcohol Use: Yes Alcohol type: beer and hard liquor Hx Substance Use: No Preferred Language: Nauruan Communication Ability: Effective Tubing Drier Required: No Beliefs That Will Affect Care: Yazidism Yazidism Beliefs: YAZIDI Current Living Situation: Spouse Feels Safe at Home: Yes Assistive Devices: Walker Physical Exam Vital Signs Vital Signs - 24 hr 01/12/25 15:39 01/12/25 15:39 01/12/25 15:44 Temperature 36.8 C 36.8 C 36.8 C Temperature Source Oral Temporal Artery Scan Pulse Rate 61 61 Pulse Rate [Apical] 61 Pulse Strength [Bilateral Carotid] Normal Respiratory Rate 18 18 18 Respiratory Effort / Characteristics Non-Labored Spontaneous Non-Labored Spontaneous Respiratory Depth Normal Normal Blood Pressure 190/55 H 190/55 H Blood Pressure [Right Arm] 190/55 H Blood Pressure Mean 100 Blood Pressure Mean [Right Arm] 100 Blood Pressure Position [Right Arm] Pulse Oximetry 95 95 95 Oxygen Delivery Method Room Air Room Air Room Air Oxygen Flow Rate 0 Sepsis Recent Fever Within 48 Hours No Sepsis New/Unexplained Change in Mental Status No Sepsis Action Taken by Nursing No Action Required 01/12/25 17:25 01/12/25 17:26 01/12/25 17:54 Temperature Temperature Source Pulse Rate 56 L Pulse Rate [Apical] 54 L 90 Pulse Strength [Bilateral Carotid] Respiratory Rate 16 24 Respiratory Effort / Characteristics Respiratory Depth Normal Blood Pressure Blood Pressure [Right Arm] 162/92 H 116/88 Blood Pressure Mean Blood Pressure Mean [Right Arm] 115 97 Blood Pressure Position [Right Arm] Semi-fowlers Lying Pulse Oximetry 98 98 Oxygen Delivery Method Room Air Room Air Oxygen Flow Rate Sepsis Recent Fever Within 48 Hours Sepsis New/Unexplained Change in Mental Status Sepsis Action Taken by Nursing Primary Survey Airway: Intact Breathing: Normal, breath sounds equal bilaterally Circulation: Skin warm, distal pulses 2+, capillary refill less than 2 seconds Disability Pupils: Equal and reactive to light, 2 mm, brisk GCS: 15, E = 4 V=5 M= 6 Motor Function: Moves all extremities. Sensory: No deficits Secondary Survey GEN: Well developed and well-nourished HEAD: Normocephallic atruamatic EYES: Pupils round reactive to light, conjunctiva clear, extraocular movements intact, no raccoons eyes ENT: no bates's sign, nares patent, oropharynx clear NECK: No JVD, midline trachea, no cervical spine tenderness HEART: Regular rate and rhythm LUNGS: Clear to auscultation bilaterally. CHEST: Chest wall non-tender, no bruising/deformity ABD: soft, non-tender, no rebound or guarding, MUSC: Pelvis stable. No step offs or deformities, T-L spine non tender NEURO: CNII-XII grossly intact, no sensory deficits Course Course 1539: The patient was evaluated in room D2. A complete history and physical exam was performed Cardiac monitoring: An order was placed for continuous cardiac monitoring. The monitor shows a rate of 50 with sinus rhythm interpreted by [facility] trauma exam activated. 1745: Vital signs stable. Imaging unremarkable, no acute traumatic injury. Labs are unremarkable, INR is therapeutic. Patient will be admitted for continued monitoring and syncope workup. Administered Medications Discontinued Medications Sodium Chloride (Nss) 500 mls @ 999 mls/hr IV .Q31M MANA Stop: 01/12/25 16:15 Last Admin: 01/12/25 16:42 Dose: 999 mls/hr Documented By: SABINA Ioversol (Optiray 320 100ml) 93 ml IV ONCE ONE Stop: 01/12/25 16:13 Last Admin: 01/12/25 16:13 Dose: 93 ml Documented By: MAYELA Morphine Sulfate (Morphine Sulfate 4 Mg/Ml 1 Ml Carp\\Vial) 3 mg IV NOW STA Stop: 01/12/25 17:11 Last Admin: 01/12/25 17:23 Dose: 3 mg Documented By: SABINA Ondansetron HCl (Ondansetron Inj 2 Mg/Ml 2 Ml Vial) 4 mg IV NOW STA Stop: 01/12/25 17:11 Last Admin: 01/12/25 17:23 Dose: 4 mg Documented By: SABINA Medical Decision Making Medical Records Attestation: I reviewed the patient's medical records. External medical records reviewed from [facility] system that were obtained by rn case manager Dejah. In November 2024 the patient had nonobstructive coronary artery disease showing mid LAD stenosis of 30%. December 31, 2024 the patient had a TAVR electively for severe symptomatic aortic stenosis. After the TAVR procedure the patient developed a new left bundle branch block that resolved with narrowing of the QRS from 144 to 122. Patient was discharged on January 02 with a nurse monitoring. January 02 the patient had what was thought to be a sustained episode of ventricular tachycardia and was readmitted to the [facility]. The patient was evaluated by electrophysiology who deemed the arrhythmia to be atrial tachycardia with aberrancy as opposed to ventricular tachycardia. The patient's metoprolol was stopped in the setting of need for block and increased the frequency of his sotalol. Laboratory Data Attestation: I reviewed the patient's lab results. 01/12/25 15:52 01/12/25 15:52 Lab Results 01/12/25 01/12/25 01/12/25 Range/Units 15:43 15:52 15:58 WBC 7.88 (4.8-10.8) K/ul RBC 3.66 L (4.70-6.10) M/uL Hgb 11.7 L (14.0-18.0) g/dL POC Hgb 12.6 L (14.0-18.0) g/dl Hct 35.2 L (42.0-52.0) % POC Hct 37 L (42-52) % MCV 96.2 (80.0-100.0) fL MCH 32.0 (25.0-34.0) pg MCHC 33.2 (32.0-36.0) g/dL RDW Std Deviation 47.1 H (36.4-46.3) fL RDW Coeff of Guille 13.3 (11.5-14.5) % Plt Count 245 (130-400) K/uL MPV 10.6 (9.4-12.4) fL Immature Gran % (Auto) 0.3 % Neut % (Auto) 71.7 % Lymph % (Auto) 16.1 % [place] % (Auto) 8.2 % Eos % (Auto) 3.3 % Baso % (Auto) 0.4 % Neut # (Auto) 5.65 (1.40-6.50) K/uL Lymph # (Auto) 1.27 (1.20-3.40) K/uL [place] # (Auto) 0.65 H (0.11-0.59) K/uL Eos # (Auto) 0.26 (0.00-0.50) K/uL Baso # (Auto) 0.03 (0.00-0.20) K/uL Immature Gran # (Auto) 0.02 (0.01-0.20) K/uL PT 20.5 H (9.0-12.0) Seconds INR 2.0 H (0.9-1.1) APTT 30 (21-31) Seconds PTT Ratio 1.1 POC Sodium 139 (135-144) mmol/L Sodium 138 (136-145) mmol/L POC Potassium 4.4 (3.3-5.0) mmol/L Potassium 4.5 (3.5-5.1) mmol/L POC Chloride 103 (101-112) mmol/L Chloride 104 (98-107) mmol/L Carbon Dioxide 28 (21-32) mmol/L POC Total CO2 24 (24-31) mmol/L Anion Gap 6 (3-11) POC Anion Gap 18.0 (16-25) mmol/L POC BUN 16 (7-18) mg/dl BUN 16 (6-23) mg/dl Creatinine 0.87 (0.6-1.4) mg/dl POC Creatinine 0.9 (0.6-1.3) mg/dl Est Cr Clr Drug Dosing 62.9 ml/min eGFR 84.03 BUN/Creatinine Ratio 18.4 (10-20) Glucose 150 H (70-99(Fasting)) mg/dl POC Glucose 134 H (70-99) mg/dl POC Glucose (other) 147 H (70-99) mg/dl Calcium 9.4 (8.6-10.3) mg/dl POC Ioniz Calcium Panfilo 1.19 (1.12-1.32) mmol/l Magnesium 2.0 (1.7-2.4) mg/dl Total Bilirubin 0.8 (0.2-1.0) mg/dl AST 20 (13-39) U/L ALT 16 (7-52) U/L Alkaline Phosphatase 45 (34-104) U/L Troponin I High Sens 8.7 (0-20) pg/ml Total Protein 8.2 (6.0-8.3) gm/dl Albumin 4.4 (3.4-5.0) gm/dl Globulin 3.8 (2.5-4.0) gm/dl Albumin/Globulin Ratio 1.2 (0.9-2) Lipase 33 (11-82) U/L Imaging Data Attestation: I personally reviewed and interpreted this imaging study as follows: My Impression: Chest x-ray: Chest x-ray negative. Airway clear. No pneumothorax. No consolidation. No cardiomegaly or cephalization.. No free air under the diaphragm. No fractures of the skeletal structures. Pelvis x-ray: No acute fracture or dislocation Radiologist's Impression: Abdomen/Pelvis CT 01/12/25 15:44 EXAMINATION: Abdomen and pelvis CT with CLINICAL HISTORY: Fell at hospital while visiting inpatient PRIORS: 08/14/2024 TECHNIQUE: Contiguous axial images were obtained through the abdomen and pelvis with the use of intravenous contrast. Sagittal and coronal reformations are supplied. FINDINGS: Mild hypoventilatory changes at the lung bases. The liver, gallbladder, portal vein, pancreas, spleen, under distended stomach, adrenals, aorta and IVC are morphologically unremarkable. Moderate to advanced atherosclerotic disease of the abdominal aorta noted. Kidneys enhance symmetrically. No renal laceration. Nonspecific perinephric stranding noted. Large amount of formed stool present throughout the entire colon. No dilated loops of bowel. Moderate to advanced diverticulosis of the distal descending and sigmoid colon. No dilated loops of small bowel. Appendix is normal. No ascites, adenopathy or extraluminal gas. No hemoperitoneum or fluid in the pelvis. Bilateral total hip arthroplasties create significant beam hardening artifact. Moderate osseous demineralization noted. No high-grade compression fracture of the lower thoracic or lumbar spine. Moderate facet hypertrophic changes present. Allowing for beam hardening artifact no obturator ring fracture or pubic symphysis widening. No displaced sacral or pelvic fracture identified. IMPRESSION: No CT evidence of an acute or traumatic abnormality in the abdomen or pelvis. Nonacute findings noted above Electronically signed by Laurence Madden 01-12-2025 4:[address] 01/12/25 15:44 EXAM: CT cervical spine CLINICAL HISTORY: Fall TECHNIQUE: Contiguous axial images were obtained through the cervical spine without the use of intravenous contrast. Sagittal and coronal reformations are supplied. PRIORS: None FINDINGS: Motion artifact degrades image quality. Mild osseous demineralization noted. Lordotic straightening is noted. No acute cervical spine fracture or facet dislocation. Moderate degenerative change with uncovertebral hypertrophic changes noted at all levels, most pronounced at C5-C6 and C6-C7. Nonaggressive calcification present in the subcutaneous tissues posterior to the cervical spine. No prevertebral soft tissue swelling. Visualized trachea is patent. No pneumothorax. IMPRESSION: No CT evidence of an acute osseous abnormality. If clinically appropriate, cervical MRI could be obtained as appropriate. Electronically signed by Laurence Madden 01-12-2025 5:25 PM Chest X-Ray 01/12/25 15:44 EXAM: X-ray chest one-view portable CLINICAL HISTORY: Trauma, fall PRIORS: 12/13/2024 TECHNIQUE: Frontal view chest FINDINGS: Lung volumes are mildly diminished. story writer or mechanical device projecting over the left chest. No airspace consolidation, effusion or congestive changes. Postsurgical change of the mediastinum. Heart size is normal. No pneumothorax. Trachea is patent. Osseous structures demonstrate no acute abnormality. No radiopaque foreign body. IMPRESSION: No plain film evidence of an acute or traumatic cardiopulmonary process. Electronically signed by Laurence Madden 01-12-2025 4:[address] 01/12/25 15:44 EXAMINATION: Head CT without CLINICAL HISTORY: Fall at hospital while visiting who is currently inpatient. PRIORS: None TECHNIQUE: Contiguous axial images were obtained through the head without the use of intravenous contrast. Sagittal and coronal reformations are supplied. FINDINGS: Mild parenchymal volume loss noted. Moderate small vessel occlusive disease present. William-white differentiation is preserved. No edema or midline shift. No intra-axial or extra-axial hemorrhage. Ventricles are normal in size and configuration. Brainstem and cerebellum have a normal appearance. Arachnoid cyst present in the midline of the posterior fossa measuring 2.5 x 2.8 cm. Calvarium unremarkable. Heterogeneously hyperdense material present within the left maxillary sinus, filling the entire sinus and measuring 53 Hounsfield units with possible postsurgical change of the sinus versus wall thinning. Complete opacification of the left frontal, ethmoid and sphenoid sinus also noted with occlusion of the ostiomeatal complex. Mild mucosal thickening of the right sphenoid sinus. No air-fluid levels. Bilateral globes are intact. No retrobulbar abnormality. IMPRESSION: 1. No CT evidence of an acute intracranial abnormality. 2. Age-related parenchymal volume loss and suspected small vessel occlusive disease. 3. Total opacification/occlusion of the left paranasal sinuses suggesting chronic sinusitis. Please correlate clinically. ACT 112: Positive. There are findings on this examination that require communication between the performing entity and the patient following Patient Test Result Information Act ([place] ACT 112) guidelines. Electronically signed by Laurence Madden 01-12-2025 4:29 PM Pelvis X-Ray 01/12/25 15:44 EXAMINATION: X-ray pelvis 1-2 view routine CLINICAL HISTORY: Trauma, fell in hospital while visiting inpatient . PRIORS: 08/14/2024 CT TECHNIQUE: Single frontal view pelvis FINDINGS: Bilateral total hip arthroplasties present with femoral stem is not on the [id number]. Mild osseous demineralization noted. No displaced pelvic fracture. Overlying bowel gas and stool scares fine bone detail. Pubic symphysis is not widened. IMPRESSION: No plain film evidence of an acute osseous abnormality on single frontal view. Electronically signed by Laurence Madden 01-12-2025 4:37 PM Elbow X-Ray 01/12/25 15:53 EXAMINATION: X-ray elbow right minimum 3 view routine CLINICAL HISTORY: Trauma, fall PRIORS: None TECHNIQUE: Frontal, oblique and lateral view elbow FINDINGS: Mild osseous demineralization noted. Lateral view is slightly obliqued with no anterior or posterior elbow joint effusion. No displaced fracture or dislocation. Radial head and neck have a normal appearance. Intravenous device noted in the antecubital fossa. Vascular calcifications present. Mild soft tissue swelling posterior to the olecranon. IMPRESSION: No plain film evidence of an acute osseous abnormality. Mild soft tissue swelling posterior to the olecranon. Electronically signed by Laurence Madden 01-12-2025 5:35 PM ECG Data Attestation: I personally reviewed and interpreted this ECG as follows: Rate (beats per minute): 53 Rhythm: + sinus bradycardia ECG Intervals/blocks: + Normal QRS, + Normal CO and + Normal QT-c ECG ST segments: + Normal ST segments MDM Narrative 1539: The patient was evaluated in room D2. A complete history and physical exam was performed Cardiac monitoring: An order was placed for continuous cardiac monitoring. The monitor shows a rate of 50 with sinus rhythm interpreted by [facility] trauma exam activated. 1745: Vital signs stable. Imaging unremarkable, no acute traumatic injury. Labs are unremarkable, INR is therapeutic. Patient will be admitted for continued monitoring and syncope workup. Impression & Plan Syncope and collapse Discharge Plan Visit Data Chief Complaint: Trauma Stated Complaint: FALL ED Provider: Mikhail Toro Discharge Problem: Syncope and collapse Patient Disposition: Admitted As Inpatient Condition: Fair Forms Stand Alone Forms: My [facility] Prescriptions Prescriptions: No Action atorvastatin 40 mg Tablet 40 mg PO DAILY aspirin 81 mg Tablet,Delayed Release (Dr/Ec) 81 mg PO QAM sotalol 120 mg Tablet 120 mg PO BID cyanocobalamin (vitamin B-12) [Vitamin B-12] 1,000 mcg Tablet 1,000 mcg PO Q OTHER DAY Saline Nasal 0.65 % Aerosol,Dike 1 spray INTRANASAL DIRECTED PRN (Reason: NASAL DRYNESS) polyethylene glycol 3350 [Miralax] 17 gram/dose powder 17 g PO DIRECTED PRN (Reason: Constipation) acetaminophen [Tylenol Ex Str Rapid Release] 500 mg Tablet 1,000 mg PO BID pantoprazole 40 mg tablet,delayed release (DR/EC) 40 mg PO QAM warfarin 5 mg tablet See Rx Instructions .ROUTE .COMPLEX Rx Instructions: Take 2.5mg by mouth on Tues/Thurs/Sun and 5mg all other days metformin 500 mg tablet extended release 24 hr 500 mg PO BID Ozempic 1 mg/dose (4 mg/3 mL) pen injector 1 mg SUBCUT DIRECTED Rx Instructions: STOPPED D/T HEART VALUE REPLACEMENT Every other Saturday Referrals Referrals: Hamzah Gonzales MD [Primary Care Provider] -
[2025-01-12 16:33] LABS: INR 2.0 (0.9-1.1); Partial Thromboplastin Time 30 Seconds (21-31); Prothrombin Time 20.5 Seconds (9.0-12.0)
--- NOTE | 2025-01-12 16:39 | XRay Report ---
EXAMINATION: X-ray pelvis 1-2 view routine CLINICAL HISTORY: Trauma, fell in hospital while visiting inpatient . PRIORS: 08/14/2024 CT TECHNIQUE: Single frontal view pelvis FINDINGS: Bilateral total hip arthroplasties present with femoral stem is not on the [id number]. Mild osseous demineralization noted. No displaced pelvic fracture. Overlying bowel gas and stool scares fine bone detail. Pubic symphysis is not widened. IMPRESSION: No plain film evidence of an acute osseous abnormality on single frontal view. Electronically signed by Laurence Madden 01-12-2025 4:37 PM
--- NOTE | 2025-01-12 16:39 | XRay Report ---
EXAM: X-ray chest one-view portable CLINICAL HISTORY: Trauma, fall PRIORS: 12/13/2024 TECHNIQUE: Frontal view chest FINDINGS: Lung volumes are mildly diminished. seasonal clerk or mechanical device projecting over the left chest. No airspace consolidation, effusion or congestive changes. Postsurgical change of the mediastinum. Heart size is normal. No pneumothorax. Trachea is patent. Osseous structures demonstrate no acute abnormality. No radiopaque foreign body. IMPRESSION: No plain film evidence of an acute or traumatic cardiopulmonary process. Electronically signed by Laurence Madden 01-12-2025 4:38 PM
[2025-01-12] MEDS: SODIUM CHLORIDE 0.9% 500 ML IV SCH (16:42)
[2025-01-12] MEDS: ONDANSETRON INJ 2 MG/ML 2 ML VIAL IV STA (17:23)
[2025-01-12] MEDS: MoRPHine SULFATE 4 MG/ML 1 ML CARP\\VIAL IV STA (17:23)
--- NOTE | 2025-01-12 17:25 | CT Scan Report ---
EXAM: CT cervical spine CLINICAL HISTORY: Fall TECHNIQUE: Contiguous axial images were obtained through the cervical spine without the use of intravenous contrast. Sagittal and coronal reformations are supplied. PRIORS: None FINDINGS: Motion artifact degrades image quality. Mild osseous demineralization noted. Lordotic straightening is noted. No acute cervical spine fracture or facet dislocation. Moderate degenerative change with uncovertebral hypertrophic changes noted at all levels, most pronounced at C5-C6 and C6-C7. Nonaggressive calcification present in the subcutaneous tissues posterior to the cervical spine. No prevertebral soft tissue swelling. Visualized trachea is patent. No pneumothorax. IMPRESSION: No CT evidence of an acute osseous abnormality. If clinically appropriate, cervical MRI could be obtained as appropriate. Electronically signed by Laurence Madden 01-12-2025 5:25 PM
--- NOTE | 2025-01-12 17:35 | XRay Report ---
EXAMINATION: X-ray elbow right minimum 3 view routine CLINICAL HISTORY: Trauma, fall PRIORS: None TECHNIQUE: Frontal, oblique and lateral view elbow FINDINGS: Mild osseous demineralization noted. Lateral view is slightly obliqued with no anterior or posterior elbow joint effusion. No displaced fracture or dislocation. Radial head and neck have a normal appearance. Intravenous device noted in the antecubital fossa. Vascular calcifications present. Mild soft tissue swelling posterior to the olecranon. IMPRESSION: No plain film evidence of an acute osseous abnormality. Mild soft tissue swelling posterior to the olecranon. Electronically signed by Laurence Madden 01-12-2025 5:35 PM
[2025-01-12] MEDS: LACTATED RINGER'S 1,000 ML IV SCH (18:44)
[2025-01-12 18:55] LABS: Thyroid Stimulating Hormone 1.77 uIu/ml (0.300-4.500)
--- NOTE | 2025-01-12 19:19 | History & Physical Report ---
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 #Fall #Syncope -unclear etiology of syncopal episode -LOC could be 2/2 adrenaline although arrythmia high on differential given recent TAVR hx, consideration to structural as well -could of been vasovagal/orthostatic in nature as well -no localization of weakness makes stroke less likely, no evidence of seizure Plan: -admit to med tele -check echo, telemetry monitoring given cardiac concerns -check orthostats, start maintenance fluids -PT/OT ordered #Severe s/p TAVR #Atrial Flutter with Aberrancy -recent TAVR placement -had recent admission at [facility] with concern for vtach that looked more like aflutter with abberency -given syncope with LOC arrhythmia on differential Plan: -cardiology consult given recent complicated TAVR placement, appreciate recs -check TSH, A1c, lipids for risk stratification -continue warfarin, sotalol #DM Type 2 #HTN #HLD -continue aspirin, statin -SSI -hold metformin, semaglutide #GERD -continue protonix I spent a total of 80 minutes in direct patient care, including [id number] time with the patient and/or family, reviewing medical records, ordering and reviewing diagnostic tests, and coordinating care with other healthcare providers. This time includes: history taking, physical examination, medical decision making, counseling, ECG interpretation, imaging interpretation, lab interpretation, orders, and education, excluding time spent in the performance of separately billed services. 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 Had recent admission at [facility] for run of vtach s/p TAVR found to be atrial flutter with aberrancy. In the ED, fell visiting family member, brought into ED room, admitted to medicine given syncopal episode and LOC. Patient seen and examined at bedside. Patient states he feels fine today. He states he does not remember falling. He states he remembers getting his feet tripped up, but does not remember falling. Remembers waking up on the floor to people around him. Does not remember a prodrome like chest pain, dizziness, lightheadedness. Denies chest pain, SOB, nausea, vomiting, diarrhea, other associated symptoms at this time. No tobacco use, no alcohol use, no drug use, full code. Allergies Allergy/AdvReac Type Severity Reaction Status Date / Time pollen extracts Allergy Intermediate Sneezing Verified 01/12/25 16:53 Home Medications Medication Instructions Recorded Confirmed Type aspirin 81 mg tablet,delayed 81 mg PO QAM 02/27/18 01/12/25 History release atorvastatin 40 mg tablet 40 mg PO DAILY 02/27/18 01/12/25 History sotalol 120 mg tablet 120 mg PO BID 02/27/18 01/12/25 History acetaminophen 500 mg tablet 1,000 mg PO BID 08/14/24 01/12/25 History metformin 500 mg tablet,extended 500 mg PO BID 08/14/24 01/12/25 History release 24 hr pantoprazole 40 mg tablet,delayed 40 mg PO QAM 08/14/24 01/12/25 History release semaglutide 1 mg/dose (4 mg/3 mL) 1 mg subcut DIRECTED 08/14/24 01/12/25 History subcutaneous pen injector (Ozempic) warfarin 5 mg tablet See Rx Instructions .Route .COMPLEX 08/14/24 01/12/25 Hist ory cyanocobalamin (vitamin B-12) 1,000 mcg PO Q OTHER DAY 01/12/25 01/12/25 History 1,000 mcg tablet (Vitamin B-12) polyethylene glycol 3350 17 17 g PO DIRECTED PRN 01/12/25 01/12/25 History gram/dose oral powder (Miralax) Constipation sodium chloride 0.65 % nasal spray 1 spray intranasal DIRECTED PRN 01/12/25 01/12/25 History aerosol (Saline Nasal) NASAL DRYNESS Past Med/Surg History Problem List (Updated 01/12/25 @ 18:10 by Mikhail Toro MD) Syncope and collapse (Acute) H/O bilateral hip replacements Encounter for pre-operative examination Anticoagulated on Coumadin (Acute) Epistaxis (Acute) Enlarged prostate (Chronic) BPH (benign prostatic hyperplasia) HX OF Medical History History of BPH History of jaundice as a child Aortic stenosis "MILD" (DON 1.5cm2, mead gradient 12.3mmhg per 09/2016 ECHO) Paroxysmal atrial fibrillation PSVT (paroxysmal supraventricular tachycardia) History of atrial fibrillation A. FIB/A.FLUTTER HISTORY S/P CARDIAC ABLATION; ON WARFARIN/ASA/BETA GONZALO Obesity Osteoarthritis Diabetes mellitus, type 2 NIDDM Deep vein thrombosis 2+ YEARS AGO PER CHART REVIEW- ON WARFARIN Hypertension Hyperlipidemia Surgical History S/P TAVR (transcatheter aortic valve replacement) History of transurethral resection of prostate History of nasal cauterization 2/2 EPITAXIS History of total hip arthroplasty LEFT History of esophagogastroduodenoscopy (EGD) History of colonoscopy History of cataract surgery B/L History of cardiac radiofrequency ablation 2/2 A.FIB/A.FLUTTER Social History Smoking Status: Never smoker Cigarettes Per Day: 1 ppd x 6-7 years; Second Hand Exposure: No; Do You Dip or Chew Tobacco: No; Hx Alcohol Use: Yes Alcohol type: beer and hard liquor Hx Substance Use: No Preferred Language: Colombian Communication Ability: Effective Flyer Maker Required: No Beliefs That Will Affect Care: [employer] Beliefs: PENTECOSTAL Current Living Situation: Spouse Feels Safe at Home: Yes Assistive Devices: Walker Review of Systems Review of Systems: -negative unless listed above Physical Exam Physical Exam: Gen: A&O 3 NAD HEENT: NCAT, EOMI, not icteric. External ears normal. No rhinorrhea. Moist mucous membranes. Neck: Supple, full range of motion, no observable masses, No meningeal sign. Lungs: No Respiratory distress. CV: RRR, no edema. Abdomen: Soft, nondistended, No rebound tenderness. MSK: No joint swelling, no redness. Skin: No rashes, petechiae, lesions. Normal color per patient. Neuro: Normal Gait, Grossly intact. Psych: Appropriate for situation. Results & Data Results & Data Vital Signs (Past 12 Hours) Vital Signs Temp Pulse Pulse Resp BP BP Pulse Ox 01/12/25 17:54 90 24 116/88 98 01/12/25 17:26 56 L 01/12/25 17:25 54 L 16 162/92 H 98 01/12/25 15:44 36.8 C 61 18 190/55 H 95 01/12/25 15:39 36.8 C 61 18 190/55 H 95 01/12/25 15:39 36.8 C 61 18 190/55 H 95 O2 Del Method O2 Flow Rate 01/12/25 17:54 Room Air 01/12/25 17:26 01/12/25 17:25 Room Air 01/12/25 15:44 Room Air 01/12/25 15:39 Room Air 0 01/12/25 15:39 Room Air Laboratory Results -personally reviewed, no leukocytosis, creatinine at baseline, normal HS troponin Medications Administered Lactated Ringer's (Lr) 1,000 mls @ 80 mls/hr IV .[id number] MANA Stop: 01/13/25 07:00 Last Admin: 01/12/25 18:44 Dose: 80 mls/hr Documented By: KASAAN Code Status & VTE Plan Code Status -full code per discussion with patient VTE Prophylaxis Plan VTE Prophylaxis will be ordered: Yes
[2025-01-12] MEDS ORDERED: GLUCOSE 40% GEL 15 GM TUBE PO PRN (19:22)
[2025-01-12] MEDS ORDERED: DEXTROSE 50% 50 ML SYRINGE IV PRN (19:22)
[2025-01-12] MEDS ORDERED: GLUCAGON FOR INJ 1 MG VIAL SQ PRN (19:22)
[2025-01-12] MEDS ORDERED: CARBOHYDRATES FOR HYPOGLYCEMIA PO PRN (19:22)
[2025-01-12] MEDS ORDERED: GLUCOSE 10 TAB/TUBE PO PRN (19:22)
[2025-01-12 19:53] LABS: Cholesterol 122.0 mg/dl (0-200); HDL Cholesterol 43.0 mg/dl; Hemoglobin A1C 7.1 % (4.5-5.6); Triglycerides 93.0 mg/dl (0-150)
[2025-01-12] MEDS: INSULIN ASPART PER UNIT CHARGE SC SCH (20:20)
[2025-01-12 21:12] LABS: Appearance Urine Clear (Clear); Glucose Urine UA Negative (Negative)
[2025-01-12] MEDS ORDERED: POLYETHYLENE (MIRALAX) 17 GM PACK PO PRN (23:03)
[2025-01-12] MEDS ORDERED: ONDANSETRON INJ 2 MG/ML 2 ML VIAL IV PRN (23:03)
[2025-01-13] MEDS: SOTALOL HCL 80 MG TAB PO SCH (00:07)
[2025-01-13] MEDS: ACETAMINOPHEN 500 MG TAB PO SCH (00:08)
[2025-01-13 03:31] VITALS: RESP 18
[2025-01-13 07:26] LABS: Hematocrit (blood only) 30.5 % (42.0-52.0); Hemoglobin 10.0 g/dL (14.0-18.0); Mean Corpuscular Hemoglobin 31.7 pg (25.0-34.0); Mean Corpuscular Volume 96.8 fL (80.0-100.0); Platelet Count 207 K/uL (130-400); RDW Standard Deviation 49.1 fL (36.4-46.3); Red Blood Count 3.15 M/uL (4.70-6.10); White Blood Count 7.59 K/ul (4.8-10.8)
[2025-01-13 07:45] LABS: Anion Gap 4.0 (3-11); Blood Urea Nitrogen 17.0 mg/dl (6-23); Calcium 9.0 mg/dl (8.6-10.3); Carbon Dioxide 29.0 mmol/L (21-32); Chloride 106.0 mmol/L (98-107); Creatinine Clr Calc Pharmacy 61.5 ml/min; Glucose 123.0 mg/dl (70-99(Fasting)); Magnesium 1.9 mg/dl (1.7-2.4); Potassium 4.4 mmol/L (3.5-5.1); Sodium 139.0 mmol/L (136-145)
[2025-01-13 07:59] LABS: INR 2.0 (0.9-1.1); Prothrombin Time 20.4 Seconds (9.0-12.0)
[2025-01-13] MEDS: CYANOCOBALAMIN (B-12) 500 MCG TABLET PO SCH (08:27)
[2025-01-13] MEDS: ATORVASTATIN 40 MG TAB PO SCH (08:27)
[2025-01-13] MEDS: ASPIRIN 81 MG ECTAB PO SCH (08:27)
--- NOTE | 2025-01-13 08:41 | Cardiology Consultation ---
Date of Consultation January 13, 2025 Assessment & Plan (1) Fall: (2) Atrial arrhythmia: (3) S/P TAVR (transcatheter aortic valve replacement): Plan Patient is an 84-year-old male who was in the emergency room visiting his who is currently a patient when he had a episode in the hallway. He is not able to recall specifically what happened as it "happened so quickly". He was awake and alert within seconds after his event. No incontinence. Witnesses do not believe he lost consciousness. Recent concerns for atrial vs ventricular arrhythmias noted post TAVR. He is at risk of conduction system disease and is currently wearing live ZIO. approx 10 days ago, patient was admitted after being found to have possible VT lasting 53 seconds on a ZIO. However, after admission, and review with EP, this was felt to be consistent with atrial tach with aberrancy. His sotalol was resumed. (Was on hold post TAVR due to concerns for conduction issues). Since resuming sotalol, patient reports feeling great overall and has had no dizziness. Fall/collapse -Difficult to determine specific etiology of event. Its possible he did trip and lose his balance, causing him to fall -Within seconds of his fall, he was awake and alert and no one felt he lost consciousness at the time per bystanders. -No incontinence -EKG demonstrated sinus mira, stable from last EKG at [facility]. Normal QTc -Xrays and head CT were unremarkable. -Patient currently wearing Live ZIo - will call company and try to retrieve any tracings from yesterday and r/o conduction system disease -for now continue sotalol 120 mg BID. If he remains bradycardic, or develops symptoms, this may need to be reduced to 80 mg BID. S/P TAVR 12/31 -update echo to assess LVEF, Valve function and r/o pericardial effusion For now, continue current medications continue on telemetry Will await report from [facility] to correlate events with arrhythmias. Case discussed with Dr. Vaughan I spent a total of 60 minutes on the date of service in preparation, delivery, and documentation of the care provided to this patient, excluding any time spent in the performance of separately billed services. Vita Barrett PA-C Department of Cardiology, [facility] This chart was completed in part utilizing Speech Voice Recognition Software. Grammatical errors, random word insertions, pronoun errors, and incomplete sentences are an occasional consequence of this system due to software limitations, ambient noise, and hardware issues. Any formal questions or concerns about the content, text, or information contained within the body of this dictation should be directly addressed to the provider for clarification. Supervising Physician Co-Signing Physician Notes I have personally performed a history and physical examination on the patient. I have reviewed the advance practitioner's documentation, and I agree with, and take responsibility for the plan of care. 84-year-old male with recent TAVR and concerns regarding atrial versus ventricular arrhythmia admitted secondary to fall, rule out syncope. Sotalol recently restarted by lecture physiology due to recurrent atrial tachycardia post TAVR implantation. He is wearing a live ZIO monitor at this time. Interrogation demonstrates no tacky dysrhythmia or bradycardia arrhythmia at the time of fall yesterday. Telemetry unremarkable since admission. Echocardiogram demonstrates preserved LV systolic function, normal TAVR function recommend continue current medications. No further inpatient cardiac testing recommended. Outpatient follow-up as scheduled. Marcelino Leslie DO, [facility] I spent a total of 35 minutes on the date of service in preparation, delivery, and documentation of the care provided to this patient, excluding any time spent in the performance of separately billed services. History of Present Illness Reason for Consultation: Fall; Recent TAVR; Recent arrhythmia Requesting Physician: Barb Mixon Attending Physician: Dr. Leslie History of Present Illness Patient is a complex 84 year old male who was in the ER yesterday while visiting his . Upon leaving, he was standing in the hallway talking to his daughter and another person. He recalls trying to turn to talk to his daughter and possibly he stumbled and tripped over his feet and ended upon the ground. Personally, I was close by when patient had his episode. Within seconds of his "fall", he was alert and talking. He was not confused. He was fully conscious. He denies being dizzy or lightheaded. He is not certain what made him fall, but he reports feeling well prior to this episode. Upon admission, EKG reviewed demonstrating sinus bradycardia at 53 bmp, stable QT/QTc measurements. His BP was elevated upon getting checked out, but he was complaining of elbow pain and hip pain. No fractures noted on xrays. He was unsure if he hit his head. Head CT was unremarkable. BP improved this morning. At time of consult this morning, patient resting in chair, feeling well. Hoping to be discharged. He denies dizziness or lightheadedness overnight. No chest pain or SOB. Recent history includes TAVR on 12/31/24 at [facility]. Post TAVR he developed new LBBB. Sotalol and metoprolol were discontinued due to concerns for conduction system disease. He was discharged with a ZIO patch. [employer] contacted ordering provider with an episode of possible sustained VT lasting Approximately 54 seconds. Patient was referred to the local emergency room. He presented to [facility] for evaluation On 01/03. He was ultimately transferred back to [facility] given his recent TAVR and concerns for worsening conduction system disease. During admission he was evaluated by EP who felt this arrhythmia was consistent with atrial tach with abberancy. Sotalol was resumed at 120 mg twice daily without recurrent arrhythmias. He is still wearing ZIO patch yesterday when he had this episode in the ER. Will try to call [employer] and evaluate for any arrhythmias that would have correlated to episode yesterday in the ER. History includes: Nonobstructive CAD, catheterization on 11/2024 showing 30% mid LAD stenosis Severe symptomatic aortic stenosis s/p TAVR, 27mm Apple Navitor Valve by Dr. Howard on 12/31 Atrial flutter and fibrillation on anticoagulation, 8% burden on 09/2020 ZIO patch Hypertension Type 2 diabetes New LBBB post TAVR VT vs Atrial tach with aberrancy note don AILYN post TAVR- admitted to [facility]- transferred to [facility] for evaluation - (sotalol and beta alma had been held on discharge from TAVR). Evaluated by EP - ZIO Telem strips reviewed and felt it was atrial tach with aberrancy vs afib NOT VT. Sotalol was resumed at 120 mg BID. No further arrhythmias noted. Allergies Allergy/AdvReac Type Severity Reaction Status Date / Time pollen extracts Allergy Intermediate Sneezing Verified 01/12/25 16:53 Home Medications Medication Instructions Recorded Confirmed Type aspirin 81 mg tablet,delayed 81 mg PO QAM 02/27/18 01/12/25 History release atorvastatin 40 mg tablet 40 mg PO DAILY 02/27/18 01/12/25 History sotalol 120 mg tablet 120 mg PO BID 02/27/18 01/12/25 History acetaminophen 500 mg tablet 1,000 mg PO BID 08/14/24 01/12/25 History metformin 500 mg tablet,extended 500 mg PO BID 08/14/24 01/12/25 History release 24 hr pantoprazole 40 mg tablet,delayed 40 mg PO QAM 08/14/24 01/12/25 History release semaglutide 1 mg/dose (4 mg/3 mL) 1 mg subcut DIRECTED 08/14/24 01/12/25 History subcutaneous pen injector (Ozempic) warfarin 5 mg tablet See Rx Instructions .Route .COMPLEX 08/14/24 01/12/25 History cyanocobalamin (vitamin B-12) 1,000 mcg PO Q OTHER DAY 01/12/25 01/12/25 History 1,000 mcg tablet (Vitamin B-12) polyethylene glycol 3350 17 17 g PO DIRECTED PRN 01/12/25 01/12/25 History gram/dose oral powder (Miralax) Constipation sodium chloride 0.65 % nasal spray 1 spray intranasal DIRECTED PRN 01/12/25 01/12/25 History aerosol (Saline Nasal) NASAL DRYNESS Patient History Medical History History of BPH History of jaundice as a child Aortic stenosis "MILD" (DON 1.5cm2, mead gradient 12.3mmhg per 09/2016 ECHO) Paroxysmal atrial fibrillation PSVT (paroxysmal supraventricular tachycardia) History of atrial fibrillation A. FIB/A.FLUTTER HISTORY S/P CARDIAC ABLATION; ON WARFARIN/ASA/BETA ALMA Obesity Osteoarthritis Diabetes mellitus, type 2 NIDDM Deep vein thrombosis 2+ YEARS AGO PER CHART REVIEW- ON WARFARIN Hypertension Hyperlipidemia Surgical History S/P TAVR (transcatheter aortic valve replacement) History of transurethral resection of prostate History of nasal cauterization 2/2 EPITAXIS History of total hip arthroplasty LEFT History of esophagogastroduodenoscopy (EGD) History of colonoscopy History of cataract surgery B/L History of cardiac radiofrequency ablation 2/2 A.FIB/A.FLUTTER Social History Smoking Status: Former smoker Cigarettes Per Day: 1 ppd x 6-7 years; Second Hand Exposure: No; Do You Dip or Chew Tobacco: No; Hx Alcohol Use: No Hx Substance Use: No Preferred Language: Albanian Communication Ability: Effective 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: No Beliefs That Will Affect Care: None Current Living Situation: Spouse Current Living Situation Comment: home with Feels Safe at Home: Yes Assistive Devices: Cane and Walker Review of Systems Review of Systems: All systems reviewed & are unremarkable except as noted in HPI & below Physical Exam Constitutional: WD/WN, vitals as above well developed; no acute distress Neck: trachea midline, no thyromegaly Respiratory: normal respiratory effort, lungs clear to auscultation Cardiovascular: Rate/Rhythm: regular rate and regular rhythm Heart Sounds: + murmur (2 out of 6 systolic murmur left sternal border.) Vessels: no JVD Extremities: no edema Gastrointestinal (Abdomen): normal bowel sounds, soft, nontender, no hepatosplenomegaly Neurologic: PERRL, EOMI, accommodation nl, no face palsy, no dysarthria Results & Data Vital Signs (Past 12 Hours) Vital Signs Temp Pulse Pulse Pulse Resp BP BP 01/13/25 08:00 36.3 C L 57 L 18 128/53 L 01/13/25 07:13 52 L 01/13/25 03:29 36.4 C L 54 L 18 128/61 01/12/25 23:00 36.3 C L 62 16 161/67 H 01/12/25 20:51 62 15 01/12/25 20:42 57 L 19 Pulse Ox O2 Del Method 01/13/25 08:00 96 Room Air 01/13/25 07:13 01/13/25 03:29 95 Room Air 01/12/25 23:00 98 Room Air 01/12/25 20:51 96 01/12/25 20:42 96 Laboratory Results Cardiac Enzymes 01/12/25 Range/Units 15:52 AST 20 (13-39) U/L Troponin I High Sens 8.7 (0-20) pg/ml Coagulation 01/12/25 01/13/25 Range/Units 15:52 06:56 PT 20.5 H 20.4 H (9.0-12.0) Seconds APTT 30 (21-31) Seconds Lipids 01/12/25 Range/Units 15:52 Triglycerides 93 (0-150) mg/dl Cholesterol 122 (0-200) mg/dl HDL Cholesterol 43 mg/dl Cholesterol/HDL Ratio 2.8 (0-5) CBC 01/12/25 01/13/25 Range/Units 15:52 06:56 WBC 7.88 7.59 (4.8-10.8) K/ul RBC 3.66 L 3.15 L (4.70-6.10) M/uL Hgb 11.7 L 10.0 L (14.0-18.0) g/dL Hct 35.2 L 30.5 L (42.0-52.0) % Plt Count 245 207 (130-400) K/uL Neut # (Auto) 5.65 (1.40-6.50) K/uL Lymph # (Auto) 1.27 (1.20-3.40) K/uL [place] # (Auto) 0.65 H (0.11-0.59) K/uL Eos # (Auto) 0.26 (0.00-0.50) K/uL Baso # (Auto) 0.03 (0.00-0.20) K/uL Comprehensive Metabolic Panel 01/12/25 01/13/25 Range/Units 15:52 06:56 Sodium 138 139 (136-145) mmol/L Potassium 4.5 4.4 (3.5-5.1) mmol/L Chloride 104 106 (98-107) mmol/L Carbon Dioxide 28 29 (21-32) mmol/L BUN 16 17 (6-23) mg/dl Creatinine 0.87 0.89 (0.6-1.4) mg/dl Glucose 150 H 123 H (70-99(Fasting)) mg/dl Calcium 9.4 9.0 (8.6-10.3) mg/dl AST 20 (13-39) U/L ALT 16 (7-52) U/L Alkaline Phosphatase 45 (34-104) U/L Total Protein 8.2 (6.0-8.3) gm/dl Albumin 4.4 (3.4-5.0) gm/dl Intake and Output 01/12/25 01/13/25 01/13/25 22:59 06:59 14:59 Intake Total 500 / 800 300 / 800 1000 / 1000 Balance 500 / 800 300 / 800 1000 / 1000 Intake: IV 500 / 500 1000 / 1000 Lactated Ringer's 1,000 ml @ 80 1000 / 1000 mls/hr IV .[id number] MANA Rx#: [id number] Sodium Chloride 0.9% 500 ml @ 500 / 500 999 mls/hr IV .Q31M MANA Rx#: [id number] Oral 0 / 300 300 / 300 Other: Weight 83 kg 84.4 kg Weight Measurement Method Chair Scale Standing Scale Diagnostic Findings Telemetry reviewed: Normal sinus rhythm and sinus bradycardia with heart rate ranging mid 50s to 60s. No high degree AV block. No atrial or ventricular arrhythmias. No pauses. EKG reviewed: Sinus bradycardia at 53 bmp No significant changes noted QT/QTC 482/452 ms Echocardiogrampending Abdomen/Pelvis CT 01/12/25 15:44 EXAMINATION: Abdomen and pelvis CT with TECHNIQUE: Contiguous axial images were obtained through the abdomen and pelvis with the use of intravenous contrast. Sagittal and coronal reformations are supplied. FINDINGS: Mild hypoventilatory changes at the lung bases. The liver, gallbladder, portal vein, pancreas, spleen, under distended stomach, adrenals, aorta and IVC are morphologically unremarkable. Moderate to advanced atherosclerotic disease of the abdominal aorta noted. Kidneys enhance symmetrically. No renal laceration. Nonspecific perinephric stranding noted. Large amount of formed stool present throughout the entire colon. No dilated loops of bowel. Moderate to advanced diverticulosis of the distal descending and sigmoid colon. No dilated loops of small bowel. Appendix is normal. No ascites, adenopathy or extraluminal gas. No hemoperitoneum or fluid in the pelvis. Bilateral total hip arthroplasties create significant beam hardening artifact. Moderate osseous demineralization noted. No high-grade compression fracture of the lower thoracic or lumbar spine. Moderate facet hypertrophic changes present. Allowing for beam hardening artifact no obturator ring fracture or pubic symphysis widening. No displaced sacral or pelvic fracture identified. IMPRESSION: No CT evidence of an acute or traumatic abnormality in the abdomen or pelvis. Nonacute findings noted above Electronically signed by Laurence Madden 01-12-2025 4:[address] 01/12/25 15:44 EXAM: CT cervical spine CLINICAL HISTORY: Fall TECHNIQUE: Contiguous axial images were obtained through the cervical spine without the use of intravenous contrast. Sagittal and coronal reformations are supplied. PRIORS: None FINDINGS: Motion artifact degrades image quality. Mild osseous demineralization noted. Lordotic straightening is noted. No acute cervical spine fracture or facet dislocation. Moderate degenerative change with uncovertebral hypertrophic changes noted at all levels, most pronounced at C5-C6 and C6-C7. Nonaggressive calcification present in the subcutaneous tissues posterior to the cervical spine. No prevertebral soft tissue swelling. Visualized trachea is patent. No pneumothorax. IMPRESSION: No CT evidence of an acute osseous abnormality. If clinically appropriate, cervical MRI could be obtained as appropriate. Electronically signed by Laurence Madden 01-12-2025 5:25 PM Chest X-Ray 01/12/25 15:44 EXAM: X-ray chest one-view portable CLINICAL HISTORY: Trauma, fall PRIORS: 12/13/2024 TECHNIQUE: Frontal view chest FINDINGS: Lung volumes are mildly diminished. deadener or mechanical device projecting over the left chest. No airspace consolidation, effusion or congestive changes. Postsurgical change of the mediastinum. Heart size is normal. No pneumothorax. Trachea is patent. Osseous structures demonstrate no acute abnormality. No radiopaque foreign body. IMPRESSION: No plain film evidence of an acute or traumatic cardiopulmonary process. Electronically signed by Laurence Madden 01-12-2025 4:[address] 01/12/25 15:44 TECHNIQUE: Contiguous axial images were obtained through the head without the use of intravenous contrast. Sagittal and coronal reformations are supplied. FINDINGS: Mild parenchymal volume loss noted. Moderate small vessel occlusive disease present. William-white differentiation is preserved. No edema or midline shift. No intra-axial or extra-axial hemorrhage. Ventricles are normal in size and configuration. Brainstem and cerebellum have a normal appearance. Arachnoid cyst present in the midline of the posterior fossa measuring 2.5 x 2.8 cm. Calvarium unremarkable. Heterogeneously hyperdense material present within the left maxillary sinus, filling the entire sinus and measuring 53 Hounsfield units with possible postsurgical change of the sinus versus wall thinning. Complete opacification of the left frontal, ethmoid and sphenoid sinus also noted with occlusion of the ostiomeatal complex. Mild mucosal thickening of the right sphenoid sinus. No air-fluid levels. Bilateral globes are intact. No retrobulbar abnormality. IMPRESSION: 1. No CT evidence of an acute intracranial abnormality. 2. Age-related parenchymal volume loss and suspected small vessel occlusive disease. 3. Total opacification/occlusion of the left paranasal sinuses suggesting chronic sinusitis. Please correlate clinically. ACT 112: Positive. There are findings on this examination that require communication between the performing entity and the patient following Patient Test Result Information Act ([place] ACT 112) guidelines. Electronically signed by Laurence Madden 01-12-2025 4:29 PM Prior outpatient data reviewed: TTE 01/01/2025: Interpretation Summary The examination is adequate to evaluate the referral indication. The qualitative LV ejection fraction is 65-69% (normal). No LV segmental wall motion abnormalities. The patient is status post TAVR with Abott Navitor prosthetic valve. Aortic valve prosthesis stenosis is absent. Mild paravalvular aortic valve prosthesis regurgitation is present. No pericardial effusion is noted. Medications Administered Current Inpatient Medications Acetaminophen (Acetaminophen 500 Mg Tab) 1,000 mg PO BID MANA Stop: 02/11/25 23:02 Last Admin: 01/13/25 08:26 Dose: 1,000 mg Aspirin (Aspirin 81 Mg Ectab) 81 mg PO QAM MANA Stop: 02/12/25 08:59 Last Admin: 01/13/25 08:27 Dose: 81 mg Atorvastatin Calcium (Atorvastatin 40 Mg Tab) 40 mg PO DAILY MANA Stop: 02/12/25 08:59 Last Admin: 01/13/25 08:27 Dose: 40 mg Cyanocobalamin (Cyanocobalamin (B-12) 500 Mcg Tablet) 1,000 mcg PO Q2D MANA Stop: 02/12/25 08:59 Last Admin: 01/13/25 08:27 Dose: 1,000 mcg Dextrose (Dextrose 50% 50 Ml Syringe) 25 - 50 ml IV UD PRN; Protocol PRN Reason: Hypoglycemia Protocol Stop: 02/11/25 19:21 Glucagon (Glucagon For Inj 1 Mg Vial) 1 mg SQ UD PRN; Protocol PRN Reason: Hypoglycemia Protocol Stop: 02/11/25 19:21 Glucose (Glucose 40% Gel 15 Gm Tube) 15 - 30 gm PO UD PRN; Protocol PRN Reason: Hypoglycemia Protocol Stop: 02/11/25 19:21 Glucose (Glucose 10 Tab/Tube) 4 - 8 tab PO UD PRN; Protocol PRN Reason: Hypoglycemia Protocol Stop: 02/11/25 19:21 Insulin Aspart (Insulin Aspart Per Unit Charge) 0 units SC ACHS MANA Stop: 02/11/25 20:59 Last Admin: 11/11/25 20:20 Dose: Not Given Miscellaneous (Carbohydrates For Hypoglycemia ) 15 - 30 gm PO UD PRN PRN Reason: Hypoglycemia Protocol Stop: 02/11/25 19:21 Ondansetron HCl (Ondansetron Inj 2 Mg/Ml 2 Ml Vial) 4 mg IV Q6H PRN PRN Reason: Nausea Stop: 02/11/25 23:02 Pantoprazole Sodium (Pantoprazole 40 Mg Tab) 40 mg PO QAM [facility] Stop: 02/12/25 08:59 Last Admin: 01/13/25 08:27 Dose: 40 mg Polyethylene Glycol (Polyethylene (Miralax) 17 Gm Pack) 17 gm PO DAILY PRN PRN Reason: Constipation Stop: 02/11/25 23:02 Sotalol HCl (Sotalol Hcl 80 Mg Tab) 120 mg PO BID [facility] Stop: 02/11/25 23:02 Last Admin: 01/13/25 08:26 Dose: 120 mg Warfarin Sodium (Warfarin Sod 5 Mg Tab) 5 mg PO MoWeFrSa [facility] Stop: 02/12/25 15:59 Warfarin Sodium (Warfarin Sod 2.5 Mg Tab) 2.5 mg PO SuTuTh [facility] Stop: 02/13/25 15:59 PG Care Time/CCT Total # of Minutes Spent Total Time Spent with Patient: Total time spent is greater than 50% in coordination of care (as documented) at patient's floor/unit and/or counseling patient: 60 minutes Coding Level of Care Code 04524 INT INP/OBS CARE 3/75MIN Diagnoses Fall W19.XXXA Atrial arrhythmia I49.8 S/P TAVR (transcatheter aortic valve replacement) Z95.2
[2025-01-13 11:30] VITALS: TEMP 97.5; O2SAT 98
--- NOTE | 2025-01-13 13:32 | XCELERA ---
[id number] [id number]
--- NOTE | 2025-01-13 14:20 | Hospitalist Progress Note ---
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 Fall Syncope Witnessed syncopal episode in the ED yesterday Does not recall details of the fall but denies dizziness, lightheadedness, chest pain prior to fall Notes he did not eat as much as usual yesterday and took his morning meds later than usual due to trying to get to the ED to visit his Head CT negative and trauma imaging negative EKG revealed sinus bradycardia Orthostatic vitals unremarkable Telemetry Echo revealed EF 60-65%, mild LVH, no prosthetic valve regurg, severe mitral annular calcification, mild to mod MR, mild TR, Cardiology is calling to try to retrieve tracing from live Ziopatch in place PT/OT consults recommending home health evaluations Severe s/p TAVR Atrial Flutter with Aberrancy TAVR on 12/31/24 at [facility] [place]. Developed new LBBB prompting discontinuation of sotalol and metoprolol Ziopatch at discharge with possible sustained VT ~54 sec prompting admission at [facility] where EP evaluated and felt arrhythmia was atrial tach with abberancy Sotalol resumed 120mg bid without recurrence of arrhythmias Cardiology is calling to try to retrieve tracing from live Ziopatch in place Continue sotalol and warfarin DM Type 2 Home metformin on hold BSG ACHS and SSI while inpatient HTN HLD -continue aspirin, statin -SSI -hold metformin, semaglutide GERD -continue protonix DVT Prophylaxis: Code Status: FULL CODE - As per discussion at bedside with the patient. PCP: Disposition: Patient seen in collaboration with . Please see addendum. I spent a total of [ ] minutes coordinating, documenting and providing care for this patient excluding time spent in the performance of separately billed servic es or time spent by another provider/QHP. Admission and Anticipated Discharge Date Admission Date: January 12, 2025 Subjective Patient seen sitting in chair Cannot recall why he collapsed yesterday Notes he ate less than usual and took his morning medications late because he was focused on getting to his in the ED Feels completely fine today Denies dizziness, chest pain, palpitations, SOB, abdominal pain, N/V/D Review of Systems Review of Systems: All systems reviewed & are unremarkable except as noted in HPI & below Physical Exam Physical Exam: General/Psych: WD/WN, sitting up in bed, NAD, conversing easily Head: normocephalic, atraumatic Eyes: normal inspection, PERRL, conjunctivae pink ENT: external ear and nose normal, oropharynx normal Neck: normal visual inspection, trachea midline Respiratory: normal respiratory effort, lungs clear to auscultation, no wheeze/rales/rhonchi, no accessory muscle use Cardiovascular: regular rate and rhythm, no murmur/rub/gallop, ziopatch to left chest Extremities: no cyanosis or clubbing, normal peripheral pulses, trace BLE edema Abdomen/GI: normal bowel sounds, soft, nontender Neurologic/MSK: A+Ox3, motor strength 5/5, moves all extremities Skin: no rashes, normal color, warm and dry Results & Data Results & Data Vital Signs (Past 12 Hours) Vital Signs Temp Pulse Pulse Resp BP Pulse Ox O2 Del Method 01/13/25 11:29 36.4 C L 51 L 18 118/61 98 Room Air 01/13/25 08:00 36.3 C L 57 L 18 128/53 L 96 Room Air 01/13/25 07:13 52 L 01/13/25 03:29 36.4 C L 54 L 18 128/61 95 Room Air Laboratory Results Short CBC 01/12/25 01/13/25 Range/Units 15:52 06:56 WBC 7.88 7.59 (4.8-10.8) K/ul Hgb 11.7 L 10.0 L (14.0-18.0) g/dL Hct 35.2 L 30.5 L (42.0-52.0) % Plt Count 245 207 (130-400) K/uL BMP 01/12/25 01/13/25 15:52 06:56 Sodium 138 139 Potassium 4.5 4.4 Chloride 104 106 Carbon Dioxide 28 29 BUN 16 17 Creatinine 0.87 0.89 Glucose 150 H 123 H Calcium 9.4 9.0 Liver Function 01/12/25 Range/Units 15:52 Total Bilirubin 0.8 (0.2-1.0) mg/dl AST 20 (13-39) U/L ALT 16 (7-52) U/L Alkaline Phosphatase 45 (34-104) U/L Albumin 4.4 (3.4-5.0) gm/dl Urine 01/12/25 Range/Units 21:00 Urine Color Yellow Urine Appearance Clear (Clear) Urine pH 7.0 (4.5-7.5) Ur Specific [place] 1.032 H (1.000-1.030) Urine Protein Negative (Negative) Urine Glucose (UA) Negative (Negative) I have independently reviewed and interpreted patient's labs including CBC and BMP. Medications Administered Current Inpatient Medications Acetaminophen (Acetaminophen 500 Mg Tab) 1,000 mg PO BID MANA Stop: 02/11/25 23:02 Last Admin: 01/13/25 08:26 Dose: 1,000 mg Aspirin (Aspirin 81 Mg Ectab) 81 mg PO QAM MANA Stop: 02/12/25 08:59 Last Admin: 01/13/25 08:27 Dose: 81 mg Atorvastatin Calcium (Atorvastatin 40 Mg Tab) 40 mg PO DAILY MANA Stop: 02/12/25 08:59 Last Admin: 01/13/25 08:27 Dose: 40 mg Cyanocobalamin (Cyanocobalamin (B-12) 500 Mcg Tablet) 1,000 mcg PO Q2D MANA Stop: 02/12/25 08:59 Last Admin: 01/13/25 08:27 Dose: 1,000 mcg Dextrose (Dextrose 50% 50 Ml Syringe) 25 - 50 ml IV UD PRN; Protocol PRN Reason: Hypoglycemia Protocol Stop: 02/11/25 19:21 Glucagon (Glucagon For Inj 1 Mg Vial) 1 mg SQ UD PRN; Protocol PRN Reason: Hypoglycemia Protocol Stop: 02/11/25 19:21 Glucose (Glucose 40% Gel 15 Gm Tube) 15 - 30 gm PO UD PRN; Protocol PRN Reason: Hypoglycemia Protocol Stop: 02/11/25 19:21 Glucose (Glucose 10 Tab/Tube) 4 - 8 tab PO UD PRN; Protocol PRN Reason: Hypoglycemia Protocol Stop: 02/11/25 19:21 Insulin Aspart (Insulin Aspart Per Unit Charge) 0 units SC ACHS [facility] Stop: 02/11/25 20:59 Last Admin: 01/13/25 12:39 Dose: 2 units Miscellaneous (Carbohydrates For Hypoglycemia ) 15 - 30 gm PO UD PRN PRN Reason: Hypoglycemia Protocol Stop: 02/11/25 19:21 Ondansetron HCl (Ondansetron Inj 2 Mg/Ml 2 Ml Vial) 4 mg IV Q6H PRN PRN Reason: Nausea Stop: 02/11/25 23:02 Pantoprazole Sodium (Pantoprazole 40 Mg Tab) 40 mg PO QAM [facility] Stop: 02/12/25 08:59 Last Admin: 01/13/25 08:27 Dose: 40 mg Polyethylene Glycol (Polyethylene (Miralax) 17 Gm Pack) 17 gm PO DAILY PRN PRN Reason: Constipation Stop: 02/11/25 23:02 Sotalol HCl (Sotalol Hcl 80 Mg Tab) 120 mg PO BID [facility] Stop: 02/11/25 23:02 Last Admin: 01/13/25 08:26 Dose: 120 mg Warfarin Sodium (Warfarin Sod 5 Mg Tab) 5 mg PO MoWeFrSa [facility] Stop: 02/12/25 15:59 Warfarin Sodium (Warfarin Sod 2.5 Mg Tab) 2.5 mg PO SuTuTh [facility] Stop: 02/13/25 15:59
[2025-01-13 15:14] VITALS: BP 140/65; PULSE 57
--- NOTE | 2025-01-13 15:48 | Discharge Summary ---
<Statement entered by Daniele Jorgensen DO - 01/13/25 16:12> I have seen and examined the patient and have discussed the case with the advance practice provider. I have reviewed the advanced practitioner's documentation, and I agree with, and take responsibility for that plan of care. Patient feeling significantly improved. No palpitations, no chest pain. Reviewed cardiology consultation Zio patch report, no arrhythmias during the time of syncope. Discussed history with JOSH, patient caring for his , in the ED, did not eat his normal time, did not drink his normal time, did not take medications as normal time. Suspect this is compounded and caused patient to have possible syncopal event. Continue discharge care as outlined below I spent a total of 18 minutes coordinating, documenting, and providing care for this patient excluding time spent by another provider/QHP. 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 Fall Syncope Witnessed syncopal episode in the ED yesterday Does not recall details of the fall but denies dizziness, lightheadedness, chest pain prior to fall Notes he did not eat as much as usual yesterday and took his morning meds later than usual due to trying to get to the ED to visit his Head CT negative and trauma imaging negative EKG and telemetry monitoring revealed sinus bradycardia Orthostatic vitals unremarkable Echo revealed EF 60-65%, mild LVH, no prosthetic valve regurg, severe mitral annular calcification, mild to mod MR, mild TR -> similar to prior echo earlier this month Cardiology called live ziopatch who confirmed no arrhythmias PT/OT consults recommending home health therapy-> referral placed by CM Severe s/p TAVR Atrial Flutter with Aberrancy TAVR on 12/31/24 at [facility] [place] Developed new LBBB prompting discontinuation of sotalol and metoprolol Williamtch at discharge with possible sustained VT ~54 sec prompting admission at [facility] [place] where EP evaluated and felt arrhythmia was atrial tach with abberancy Sotalol resumed 120mg bid without recurrence of arrhythmias Cardiology called live maureen who confirmed no arrhythmias Continue sotalol and warfarin Follow up with Cardiology tomorrow 01/14/2025 DM Type 2 Continue metformin and Ozempic Dyslipidemia Continue statin GERD Continue PPI Patient seen in collaboration with Dr. Jorgensen. Please see addendum. Notes For Next Care Provider 84 year old male with PMH who had syncopal episode while visiting in ED. Cardiac workup unremarkable and reassuring against arrhythmia. Follow up with PCP and Software Quality Test Engineer as scheduled. Referral to Home Health for therapy in home. 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 Had recent admission at [facility] for run of vtach s/p TAVR found to be atrial flutter with aberrancy. In the ED, fell visiting family member, brought into ED room, admitted to medicine given syncopal episode and LOC. Patient seen and examined at bedside. Patient states he feels fine today. He states he does not remember falling. He states he remembers getting his feet tripped up, but does not remember falling. Remembers waking up on the floor to people around him. Does not remember a prodrome like chest pain, dizziness, lightheadedness. Denies chest pain, SOB, nausea, vomiting, diarrhea, other associated symptoms at this time. No tobacco use, no alcohol use, no drug use, full code. Admission Exam Per Admitting Provider Gen: A&O 3 NAD HEENT: NCAT, EOMI, not icteric. External ears normal. No rhinorrhea. Moist mucous membranes. Neck: Supple, full range of motion, no observable masses, No meningeal sign. Lungs: No Respiratory distress. CV: RRR, no edema. Abdomen: Soft, nondistended, No rebound tenderness. MSK: No joint swelling, no redness. Skin: No rashes, petechiae, lesions. Normal color per patient. Neuro: Normal Gait, Grossly intact. Psych: Appropriate for situation. Discharge Exam General/Psych: WD/WN, sitting up in bed, NAD, conversing easily Head: normocephalic, atraumatic Eyes: normal inspection, PERRL, conjunctivae pink ENT: external ear and nose normal, oropharynx normal Neck: normal visual inspection, trachea midline Respiratory: normal respiratory effort, lungs clear to auscultation, no wheeze/rales/rhonchi, no accessory muscle use Cardiovascular: regular rate and rhythm, no murmur/rub/gallop, ziopatch to left chest Extremities: no cyanosis or clubbing, normal peripheral pulses, trace BLE edema Abdomen/GI: normal bowel sounds, soft, nontender Neurologic/MSK: A+Ox3, motor strength 5/5, moves all extremities Skin: no rashes, normal color, warm and dry Updated Medication List Medication Instructions Recorded Confirmed Type aspirin 81 mg tablet,delayed 81 mg PO QAM 02/27/18 01/12/25 History release atorvastatin 40 mg tablet 40 mg PO DAILY 02/27/18 01/12/25 History sotalol 120 mg tablet 120 mg PO BID 02/27/18 01/12/25 History acetaminophen 500 mg tablet 1,000 mg PO BID 08/14/24 01/12/25 History metformin 500 mg tablet,extended 500 mg PO BID 08/14/24 01/12/25 History release 24 hr pantoprazole 40 mg tablet,delayed 40 mg PO QAM 08/14/24 01/12/25 History release semaglutide 1 mg/dose (4 mg/3 mL) 1 mg subcut DIRECTED 08/14/24 01/12/25 History subcutaneous pen injector (Ozempic) warfarin 5 mg tablet See Rx Instructions .Route .COMPLEX 08/14/24 01/12/25 History cyanocobalamin (vitamin B-12) 1,000 mcg PO Q OTHER DAY 01/12/25 01/12/25 History 1,000 mcg tablet (Vitamin B-12) polyethylene glycol 3350 17 17 g PO DIRECTED PRN 01/12/25 01/12/25 History gram/dose oral powder (Miralax) Constipation sodium chloride 0.65 % nasal spray 1 spray intranasal DIRECTED PRN 01/12/25 01/12/25 History aerosol (Saline Nasal) NASAL DRYNESS Hospital Stay Data Consultations 01/12/25 17:30 ED Decision to Admit Stat 01/12/25 19:32 Consult Cardiology Routine Diagnostic Imagining Performed Abdomen/Pelvis CT 01/12/25 15:44 EXAMINATION: Abdomen and pelvis CT with CLINICAL HISTORY: Fell at hospital while visiting inpatient PRIORS: 08/14/2024 TECHNIQUE: Contiguous axial images were obtained through the abdomen and pelvis with the use of intravenous contrast. Sagittal and coronal reformations are supplied. FINDINGS: Mild hypoventilatory changes at the lung bases. The liver, gallbladder, portal vein, pancreas, spleen, under distended stomach, adrenals, aorta and IVC are morphologically unremarkable. Moderate to advanced atherosclerotic disease of the abdominal aorta noted. Kidneys enhance symmetrically. No renal laceration. Nonspecific perinephric stranding noted. Large amount of formed stool present throughout the entire colon. No dilated loops of bowel. Moderate to advanced diverticulosis of the distal descending and sigmoid colon. No dilated loops of small bowel. Appendix is normal. No ascites, adenopathy or extraluminal gas. No hemoperitoneum or fluid in the pelvis. Bilateral total hip arthroplasties create significant beam hardening artifact. Moderate osseous demineralization noted. No high-grade compression fracture of the lower thoracic or lumbar spine. Moderate facet hypertrophic changes present. Allowing for beam hardening artifact no obturator ring fracture or pubic symphysis widening. No displaced sacral or pelvic fracture identified. IMPRESSION: No CT evidence of an acute or traumatic abnormality in the abdomen or pelvis. Nonacute findings noted above Electronically signed by Laurence Madden 01-12-2025 4:[address] 01/12/25 15:44 EXAM: CT cervical spine CLINICAL HISTORY: Fall TECHNIQUE: Contiguous axial images were obtained through the cervical spine without the use of intravenous contrast. Sagittal and coronal reformations are supplied. PRIORS: None FINDINGS: Motion artifact degrades image quality. Mild osseous demineralization noted. Lordotic straightening is noted. No acute cervical spine fracture or facet dislocation. Moderate degenerative change with uncovertebral hypertrophic changes noted at all levels, most pronounced at C5-C6 and C6-C7. Nonaggressive calcification present in the subcutaneous tissues posterior to the cervical spine. No prevertebral soft tissue swelling. Visualized trachea is patent. No pneumothorax. IMPRESSION: No CT evidence of an acute osseous abnormality. If clinically appropriate, cervical MRI could be obtained as appropriate. Electronically signed by Laurence Madden 01-12-2025 5:25 PM Chest X-Ray 01/12/25 15:44 EXAM: X-ray chest one-view portable CLINICAL HISTORY: Trauma, fall PRIORS: 12/13/2024 TECHNIQUE: Frontal view chest FINDINGS: Lung volumes are mildly diminished. charge auditor or mechanical device projecting over the left chest. No airspace consolidation, effusion or congestive changes. Postsurgical change of the mediastinum. Heart size is normal. No pneumothorax. Trachea is patent. Osseous structures demonstrate no acute abnormality. No radiopaque foreign body. IMPRESSION: No plain film evidence of an acute or traumatic cardiopulmonary process. Electronically signed by Laurence Madden 01-12-2025 4:[address] 01/12/25 15:44 EXAMINATION: Head CT without CLINICAL HISTORY: Fall at hospital while visiting who is currently inpatient. PRIORS: None TECHNIQUE: Contiguous axial images were obtained through the head without the use of intravenous contrast. Sagittal and coronal reformations are supplied. FINDINGS: Mild parenchymal volume loss noted. Moderate small vessel occlusive disease present. William-white differentiation is preserved. No edema or midline shift. No intra-axial or extra-axial hemorrhage. Ventricles are normal in size and configuration. Brainstem and cerebellum have a normal appearance. Arachnoid cyst present in the midline of the posterior fossa measuring 2.5 x 2.8 cm. Calvarium unremarkable. Heterogeneously hyperdense material present within the left maxillary sinus, filling the entire sinus and measuring 53 Hounsfield units with possible postsurgical change of the sinus versus wall thinning. Complete opacification of the left frontal, ethmoid and sphenoid sinus also noted with occlusion of the ostiomeatal complex. Mild mucosal thickening of the right sphenoid sinus. No air-fluid levels. Bilateral globes are intact. No retrobulbar abnormality. IMPRESSION: 1. No CT evidence of an acute intracranial abnormality. 2. Age-related parenchymal volume loss and suspected small vessel occlusive disease. 3. Total opacification/occlusion of the left paranasal sinuses suggesting chronic sinusitis. Please correlate clinically. ACT 112: Positive. There are findings on this examination that require communication between the performing entity and the patient following Patient Test Result Information Act ([place] ACT 112) guidelines. Electronically signed by Laurence Madden 01-12-2025 4:29 PM Pelvis X-Ray 01/12/25 15:44 EXAMINATION: X-ray pelvis 1-2 view routine CLINICAL HISTORY: Trauma, fell in hospital while visiting inpatient . PRIORS: 08/14/2024 CT TECHNIQUE: Single frontal view pelvis FINDINGS: Bilateral total hip arthroplasties present with femoral stem is not on the [id number]. Mild osseous demineralization noted. No displaced pelvic fracture. Overlying bowel gas and stool scares fine bone detail. Pubic symphysis is not widened. IMPRESSION: No plain film evidence of an acute osseous abnormality on single frontal view. Electronically signed by Laurence Madden 01-12-2025 4:37 PM Elbow X-Ray 01/12/25 15:53 EXAMINATION: X-ray elbow right minimum 3 view routine CLINICAL HISTORY: Trauma, fall PRIORS: None TECHNIQUE: Frontal, oblique and lateral view elbow FINDINGS: Mild osseous demineralization noted. Lateral view is slightly obliqued with no anterior or posterior elbow joint effusion. No displaced fracture or dislocation. Radial head and neck have a normal appearance. Intravenous device noted in the antecubital fossa. Vascular calcifications present. Mild soft tissue swelling posterior to the olecranon. IMPRESSION: No plain film evidence of an acute osseous abnormality. Mild soft tissue swelling posterior to the olecranon. Electronically signed by Laurence Madden 01-12-2025 5:35 PM Pending Results Patient Have Any Pending Studies at Discharge: No Discharge Instructions Given to Patient (Per Discharging Provider) You were admitted to the hospital after passing out in the ED while visiting your . This was likely because of not eating very much and taking your medications late. We performed a work up including cardiac monitoring, vital signs, labs, and echocardiogram which were all unremarkable. Cardiology called the company of your [employer] and confirmed you did not have any arrhythmias. You worked with Physical Therapy and Occupational Therapy who felt you would benefit from home health therapy so referrals were placed for this. Please stay hydrated and follow up with your PCP and Software Quality Test Engineer as scheduled. MEDICATION CHANGES: None SUMMARY OF TEST RESULTS: Head CT, Abdomen/Pelvis CT, Cervical Spine CT, Chest x-ray, Pelvis x-ray, Elbow x-ray all without injuries Echocardiogram similar to previous this month PENDING TEST RESULTS: None RECOMMENDATIONS FOR FOLLOW-UP: Please follow up with your PCP on 01/21/2025 at 10:20am Please follow up with Bradford Govea as scheduled tomorrow OTHER INSTRUCTIONS: Seek medical attention if you have: * temperature above 101 * chest pain or trouble breathing * abdominal pain, nausea, vomiting * diarrhea, dark stools or bloody stools * any unanswered questions or concerns Call 911 if symptoms are severe. It has been a pleasure taking care of you. Please take care of yourself. If you have any questions regarding your recent hospitalization please contact [facility] and request Barb Padgettist @ [phone]. Home Health Attestation I certify that this patient is under my care and that I, or a physicians medical assistant instructor working with me, had a face to-face encounter that meets the home health [id number] encounter requirements with this patient. The encounter with the patient was in whole, or in part, for the following medical condition, which is the primary reason for home health care (list medical condition): I certify that, based on my findings, the following services are medically necessary home health services: My clinical findings support the need for the above services because: OT Assess ADL Status and Restore Function w ADLs PT Assessment for Endurance / Balance / Strength PT Eval for Safety and Mobility PT Eval for Safety, Gait Training, Assistive Devices PT Gait and Balance Training, Strengthening and Safety Further, I certify that my clinical findings support that this patient is homebound (i.e. absences from home require considerable and taxing effort and are for medical reasons or congregational services or infrequently or of short duration when for other reasons) because: Certification for Home Health Services: Based on the above findings, I certify that this patient is confined to the home and needs intermittent prison care, physical therapy and/or speech therapy or continues to need occupational therapy. The patient is under my care, and I have initiated the establishment of the plan of care. This patient will be followed by a physician who will periodically review the plan of care. Total Time Total Time Spent Total Time Spent (In Minutes): I spent a total of 35 minutes coordinating, documenting and providing care for this patient excluding time spent in the performance of separately billed services or time spent by another provider/QHP.
[2025-01-13] MEDS: WARFARIN SOD 5 MG TAB PO SCH (16:01)
[2025-01-14] MEDS ORDERED: WARFARIN SOD 2.5 MG TAB PO SCH (16:00)
--- NOTE | 2025-01-15 08:22 | Electrocardiogram Report ---
Test Reason : Blood Pressure : */* mmHG Vent. Rate : 53 BPM Atrial Rate : 53 BPM P-R Int : 160 ms QRS Dur : 88 ms QT Int : 482 ms P-R-T Axes : 49 -14 39 degrees QTcB Int : 452 ms Sinus bradycardia Otherwise normal ECG When compared with ECG of 13-Dec-2024 13:17, No significant change was found Confirmed by Lane Cat ([id number]) on 01/15/2025 8:22:21 AM Referred By: REFERRED SELF Confirmed By: Lane Cat
== END 2025-01-13 16:52 | disposition home health service (06) | DRG 312 ==
LOC: ED 15:37 → SUATTDRO 18:17 → 2N 18:17